=== PATIENT | male | born 1950 | race Caucasian/White ===

== ENCOUNTER 2020-03-24 07:46 | Outpatient (CLI) | payer MEDICARE, SELFPAY ==
--- NOTE | ~2020-03-24 | US_ITS ---
US right upper quadrant INDICATION: Chronic hepatitis PROCEDURE: Realtime right upper abdominal ultrasound. COMPARISON: No prior studies for comparison. FINDINGS: The pancreas is normal without focal mass or pancreatic ductal dilation. Liver echotexture is normal without focal mass or intrahepatic biliary dilatation. There is normal directional flow i n the portal vein. The gallbladder is normal without stones, gallbladder wall thickening or pericholecystic fluid. Comm on bile duct measures 6 mm. No sonographic Castellanos's sign. IMPRESSION: 1: Normal limited abdominal ultrasound. Reviewed, dictated and finalized at location B.
== END 2020-03-24 07:47 | disposition home or self-care (01) ==
PROVIDERS: PCP Internal Medicine; Visit Provider Internal Medicine
DX: K73.9 Chronic hepatitis, unspecified (principal)
CPT/HCPCS: 76705

== ENCOUNTER 2020-06-19 10:03 | Outpatient (CLI) | payer MEDICARE, SELFPAY ==
--- NOTE | ~2020-06-19 | XR_ITS ---
XR chest 2V DATE: 06/19/2020 10:31 INDICATION: Hypertension. Preoperative evaluation. TECHNIQUE: PA and lateral views COMPARISON: PA chest on 08/07/2017 FINDINGS: Bilateral hyperinflation. No pulmonary infiltrate or consolidation, pleural effusion or pul monary vascular congestion or pneumothorax. Normal heart size. No hilar or mediastinal enlargement. Degenerative spurring of the thoracic spine. IMPRESSION: No active cardiopulmonary disease Reviewed, dictated and finalized at location A.
--- NOTE | 2020-06-19 10:00 | ECG_ITS ---
Measurements Intervals [place] Rate: 94 P: 66 [place]: 164 QRS: 74 QRSD: 116 T: 49 QT: 339 QTc: 426 Interpretive Statements SINUS RHYTHM INTRAVENTRICULAR CONDUCTION DELAY BORDERLINE ECG Electronically Signed On 06-19-2020 11:37:04 CDT by David Richardson D.O.
== END 2020-06-19 10:04 | disposition home or self-care (01) ==
PROVIDERS: PCP Internal Medicine; Visit Provider Internal Medicine
DX: I10 Essential (primary) hypertension (principal); Z01.818 Encounter for other preprocedural examination
CPT/HCPCS: 71046; 93005

== ENCOUNTER 2020-07-09 13:31 | Outpatient (CLI) | payer MEDICARE, SELFPAY ==
[2020-07-09 15:05] LABS: Basophils Absolute Auto 0.1 K/mm3 (0.0-0.1); Basophils Percent Auto 0.8 % (0.2-1.2); Eosinophils Absolute Auto 0.3 K/mm3 (0-0.3); Eosinophils Percent Auto 4.1 % (0-4.4); Hematocrit 45.3 % (42.0-52.0); Hemoglobin 15.5 g/dL (14.0-18.0); Immature Granulocyte Absolute 0.02 K/mm3 (0.00-0.031); Immature Granulocyte Percent A 0.3 % (0-0.5); Lymphocytes Absolute Auto 1.32 K/mm3 (0.9-3.2); Mean Corpuscular HGB Conc 34.2 g/dl (32-36); Mean Corpuscular Hemoglobin 31.7 pg (26-34); Mean Corpuscular Volume 92.6 fl (80-100); Mean Platelet Volume 9.5 fl (7.4-10.4); Monocytes Absolute Auto 0.8 K/mm3 (0.1-0.6); Monocytes Percent Auto 10.5 % (2.6-8.5); Neutrophils Absolute Auto 5.2 K/mm3 (1.3-6.7); Neutrophils Percent Auto 67.3 % (45.5-73.1); Platelet Count Result 199 k/mm3 (150-375); Red Blood Count 4.89 M/mm3 (4.6-6.20); Red Cell Distribution Width 12.3 % (11.5-14.5); White Blood Count 7.8 K/mm3 (4.5-10.0)
[2020-07-09 15:13] LABS: Albumin Level 4.9 g/dL (3.5-5.1)
[2020-07-09 15:19] LABS: Hemoglobin A1C 5.1 % (<5.7); Urine Cotinine NEGATIVE
== END 2020-07-09 13:32 | disposition home or self-care (01) ==
PROVIDERS: PCP Internal Medicine; Visit Provider Orthopaedic Surgery
DX: M17.12 Unilateral primary osteoarthritis, left knee (principal); Z01.818 Encounter for other preprocedural examination
CPT/HCPCS: 80307; 82040; 83036; 85025; 87070; 87077; 87186

== ENCOUNTER 2020-10-16 09:27 | Outpatient (CLI) | payer MEDICARE, SELFPAY ==
[2020-10-16 11:24] LABS: Basophils Absolute Auto 0.1 K/mm3 (0.0-0.1); Basophils Percent Auto 0.8 % (0.2-1.2); Eosinophils Absolute Auto 0.5 K/mm3 (0-0.3); Eosinophils Percent Auto 4.4 % (0-4.4); Hematocrit 49.8 % (42.0-52.0); Hemoglobin 17.3 g/dL (14.0-18.0); Immature Granulocyte Absolute 0.05 K/mm3 (0.00-0.031); Immature Granulocyte Percent A 0.5 % (0-0.5); Lymphocytes Absolute Auto 1.93 K/mm3 (0.9-3.2); Lymphocytes Percent Auto 18.1 % (18.3-44.2); Mean Corpuscular HGB Conc 34.7 g/dl (32-36); Mean Corpuscular Hemoglobin 31.3 pg (26-34); Mean Corpuscular Volume 90.2 fl (80-100); Mean Platelet Volume 9.4 fl (7.4-10.4); Monocytes Absolute Auto 1.1 K/mm3 (0.1-0.6); Monocytes Percent Auto 10.5 % (2.6-8.5); Neutrophils Percent Auto 65.7 % (45.5-73.1); Platelet Count Result 250 k/mm3 (150-375); Red Blood Count 5.52 M/mm3 (4.6-6.20); Red Cell Distribution Width 11.9 % (11.5-14.5); White Blood Count 10.7 K/mm3 (4.5-10.0)
[2020-10-16 11:36] LABS: Albumin Level 4.7 g/dL (3.5-5.1)
[2020-10-16 11:39] LABS: Anion Gap 7 mmol/L (8-16); Blood Urea Nitrogen 21 mg/dL (9-20); Calcium 8.9 mg/dL (8.4-10.2); Carbon Dioxide 30 mmol/L (22-30); Chloride 104 mmol/L (98-107); Estimated Glomerular Filt Rate > 60; Glucose 96 mg/dL (75-110); Potassium 4.3 mmol/L (3.4-5.0); Sodium 141 mmol/L (137-145)
[2020-10-16 12:01] LABS: Urine Cotinine NEGATIVE
[2020-10-16 13:35] LABS: Hemoglobin A1C 5.2 % (<5.7)
== END 2020-10-16 09:28 | disposition home or self-care (01) ==
LOC: ANHSURGERY 09:33
PROVIDERS: PCP Internal Medicine; Visit Provider Orthopaedic Surgery
DX: M17.12 Unilateral primary osteoarthritis, left knee (principal); Z01.818 Encounter for other preprocedural examination
CPT/HCPCS: 36415; 80048; 80307; 82040; 83036; 85025; 86850; 86900; 86901; 87070; 87147; 87186

== ENCOUNTER → 2020-10-23 00:28 | Outpatient (CLI) | payer MEDICARE, SELFPAY ==
[2020-10-23 18:19] LABS: SARS-CoV-2 RNA PCR Negative
== END ==
PROVIDERS: PCP Internal Medicine; Visit Provider Orthopaedic Surgery
DX: Z01.812 Encounter for preprocedural laboratory examination (principal); Z20.822 Contact with and (suspected) exposure to COVID-19
CPT/HCPCS: C9803; U0003; U0005

== ENCOUNTER 2020-10-26 00:08 | Day surgery (SDC) | payer MEDICARE, SELFPAY ==
[2020-07-09 13:39] VITALS: BMI 32.6
[2020-07-09 14:43] VITALS: BP 151/87; PULSE 82; RESP 16; TEMP 36.9; O2SAT 100
[2020-10-16 10:13] VITALS: BP 152/85; PULSE 85; RESP 18; TEMP 37.1; O2SAT 96; BMI 33.1
--- NOTE | 2020-10-21 12:58 | PM.IMHP ---
H&P: HPI History of Present Illness Date/Time: 10/21/20 12:58 <LALO Padron - Last Filed: 10/21/20 13:05> Chief Complaint: Left knee DJD <LALO Padron - Last Filed: 10/21/20 13:05> Narrative: Ramy Roche is a 69 year old male patient of Dr. Rosario who presents today for a left total knee arthroplasty. He has been having pain in both of his knees for several years the right being worse than left. He had a cortisone injection on 10/19/2020 in the right knee by his primary care doctor, this does seem to help somewhat. He is taking meloxicam in the past as well. He has been having pain on a daily basis and reached a point where he feels he is ready proceed with total knee arthroplasty on the left at this point. 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 He has had pain on a daily basis without improvement from nonsurgical treatment. <LALO aPdron - Last Filed: 10/21/20 13:05> Review of Systems Review of Systems: All systems reviewed & are unremarkable except as noted in HPI and below <LALO Padron - Last Filed: 10/21/20 13:05> [facility], [facility] Past Medical History Medical History: Medical History (Updated 10/23/20 @ 08:12 by Brendan Robles DO) History of hepatitis C 2016 - treated Hypertension Rheumatoid arthritis <LALO Padron - Last Filed: 10/21/20 13:05> Social History Social History: Social History Smoking packs per day: 1 Smoking cigarettes per day: 20.0 Years smoked: 30 Smoking pack-years: 30.00 Smoking status: Former smoker Tobacco type: cigarettes Second hand tobacco smoke exposure: No Smoking end date: 03/11/94 Additional smoking assessment comments: DENIES ANY FORM OF TOBACCO/NICOTINE USE Alcohol intake: current Drinks per week: 32 Alcohol use details: 4 BEERS/DAY Substance use: current Substance use type: marijuana Other substance usage details: 2-3 TIMES/WEEK, SMOKE Living arrangements: with family Additional living arrangements comments: Spiritual care concerns: No <LALO Padron Last Filed: 10/21/20 13:05> Meds Home Medications and Allergies Home medications: Home Medications Medication Instructions Recorded Confirmed Type amlodipine 10 mg PO QAM 07/09/20 10/26/20 History meloxicam 15 mg PO DAILY 07/09/20 10/26/20 History lisinopril 40 mg PO QAM 10/16/20 10/26/20 History metoprolol succinate 50 mg PO QAM 10/16/20 10/26/20 History prednisone 10 mg PO DAILY 10/16/20 10/26/20 History <LALO Padron Last Filed: 10/21/20 13:05> Allergies/Adverse reactions: Allergies Allergy/AdvReac Type Severity Reaction Status Date / Time No Known Allergies Allergy Verified 10/26/20 06:45 <LALO Padron Last Filed: 10/21/20 13:05> Exam Narrative: Exam Narrative: 69-year-old male he is 5 ft 11 and 237 lb. He uses a cane. He has an obvious varus deformity in both of his knees. He has normal skin throughout both lower extremities. He has a prominent bunion in the left foot but without any skin changes over it. Normal sensation left foot. 2+ posterior tibial pulse range of motion left knee is from 2-130 degrees. He has [id number] effusion in the knee and mild medial joint line tenderness. Hip range of motion is full without discomfort on left with a negative Stinchfield maneuver. Normal quad strength. No edema in the left lower extremity. <LALO Padron Last Filed: 10/21/20 13:05> Resp: Auscultation: clear to auscultation bilaterally <LALO Padron Last Filed: 10/21/20 13:05> Cardio: Rate: regular rate <LALO Padron Last Filed: 10/21/20 13:05> Rhythm: regular rhythm <LALO Padron Last Filed: 10/21/20 13:05> Assessment and Plan Additional Plan 69-year-old male who has severe medial compartment and patellofemoral arthritis in th
[2020-10-26] VITALS (22 sets, daily range): BP systolic 115–153; BP diastolic 71–95; PULSE 103–125; RESP 12–20; TEMP 35.9–37.2; O2SAT 94–100
--- NOTE | ~2020-10-26 | XR_ITS ---
EXAMINATION: XR knee LT 2V DATE: 10/26/2020 14:59 INDICATION: Postoperative evaluation following left total knee arthroplasty. TECHNIQUE: Anteroposterior and lateral views of the left knee were obtained. COMPARISON: None. FINDINGS: Left total knee arthroplasty with patellar resurfacing appears well seated and in near anatomic align ment. No fractures identified. Expected postoperative subcutaneous and intra-articular gas. IMPRESSION: 1. Left total knee arthroplasty, negative for postoperative purposes. Reviewed, dictated and finalized at location A. EMIC AFFAIRS COORDINATOR
[2020-10-26] MEDS: ACETAMINOPHEN 500 MG TABLET 1000 MG PO ×2 (06:19→17:35)
[2020-10-26] MEDS: LACTATED RINGERS 1,000 ML 30 ML IV CONT ×2 (06:34→11:33)
--- NOTE | 2020-10-26 06:34 | WPDANESEPPF ---
Anes - Initial Pre Proc Eval Procedure: Operation Date: 10/26/20 07:30 Proposed Procedures p Left Total Knee Arthroplasty - Augustin Sutton MD Date/Time: 10/26/20 06:34 Surgeon: Augustin Sutton MD Pre Op Diagnosis: OA Left Knee Patient Data Age: 69 Gender: M Height: 1.83 m Weight: 110.9 kg Last Vital Signs Temp 37.1 C 10/16/20 10:13 Pulse 85 10/16/20 10:13 Resp 18 10/16/20 10:13 BP 152/85 H 10/16/20 10:13 Pulse Ox 96 10/16/20 10:13 Allergies Allergy/AdvReac Type Severity Reaction Status Date / Time No Known Allergies Allergy Verified 10/16/20 10:04 Home Medications Medication Instructions Recorded Confirmed Type amlodipine 10 mg PO QAM 07/09/20 10/26/20 History meloxicam 15 mg PO DAILY 07/09/20 10/26/20 History lisinopril 40 mg PO QAM 10/16/20 10/26/20 History metoprolol succinate 50 mg PO QAM 10/16/20 10/26/20 History prednisone 10 mg PO DAILY 10/16/20 10/16/20 History Patient hx anesthesia problems: none Family hx anesthesia problems: none PMFSH Past Medical History Medical History (Updated 10/23/20 @ 08:12 by Brendan Robles DO) History of hepatitis C 2016 - treated Hypertension Rheumatoid arthritis Social History Social History Smoking packs per day: 1 Smoking cigarettes per day: 20.0 Years smoked: 30 Smoking pack-years: 30.00 Smoking status: Former smoker Tobacco type: cigarettes Second hand tobacco smoke exposure: No Smoking end date: 03/11/94 Additional smoking assessment comments: DENIES ANY FORM OF TOBACCO/NICOTINE USE Alcohol intake: current Drinks per week: 32 Alcohol use details: 4 BEERS/DAY Substance use: current Substance use type: marijuana Other substance usage details: 2-3 TIMES/WEEK, SMOKE Living arrangements: with family Additional living arrangements comments: Spiritual care concerns: No Anes - Eval Final PreProcedure Day of Procedure 10/26/20 06:34 Patient weight: obese Heart: regular rate and rhythm Lungs: clear to auscultation and normal air movement Airway: Mallampati scale class II Neurological: alert and oriented Last oral intake: >/= 8 hours ASA classification: III Emergent: no Anesthetic plan: proceed Anesthesia type and monitoring: general ETT and standard monitoring Informed Consent: The patient's anesthetic plan and its attendant risks and benefits were discussed with the patient/family/POA. Questions were solicited and answers provided to the satisfaction of the patient/family/POA.
[2020-10-26] MEDS: TRANEXAMIC ACID 1,000MG/ISO100 1,000 MG/100 ML BAG 200 MG IVPB (07:00)
--- NOTE | 2020-10-26 07:20 | WPDHPUPDATE1 ---
History and Physical Update Update Date/Time: 10/26/20 07:20 History and Physical has been reviewed, including an updated exam of the patient. There are NO changes in the patient's condition. Risks, benefits, and alternatives have been discussed and questions answered. Patient agrees to proceed with procedure.
[2020-10-26] MEDS: ceFAZolin 2 GM/D5W 50 ML 2 GM/50 ML BAG IVPB (07:28)
[2020-10-26] MEDS: ceFAZolin SODIUM 1 GM VIAL 3 GM IRRIGATION (08:12)
[2020-10-26] MEDS: GENTAMICIN BONE CEMENT REFOBACIN 1 EACH TOPICAL (08:12)
[2020-10-26] MEDS: ceFAZolin SODIUM 1 GM VIAL IV PUSH (10:47)
--- NOTE | 2020-10-26 11:07 | PM.PROC ---
Procedure Note - Detailed Date of procedure: 10/26/20 Pre-op diagnosis: OA Left Knee Patient was brought to the operating room and general anesthesia was administered and the left leg prepped and draped usual fashion. He received 2 g of Ancef 1.75 g of vancomycin and 1 g of tranexamic acid preoperatively. The limb was exsanguinated tourniquet elevated to 200 sitting 5 mmHg. The 7 in longitudinal midline incision was used and a standard parapatellar arthrotomy was utilized. Infrapatellar and suprapatellar fat pads were excised and a quadriceps synovectomy carried out. He had severe patellofemoral arthritis with eburnation and grooving on the trochlea and the patella. The patella measured 24 mm in thickness and was cut to 15.5 mm. Bone quality good. Protector cap applied. A guide asif was inserted down the femoral canal after aspiration of canal contents using the 5 degree valgus cutting bushing 9 mm of bone removed from the distal femur. Because of moderate wear and some bone loss in the mid distal medial femoral condyle this removed equal amounts medially and laterally. Next the tibial plateau was cut and we removed a skim cut based off the low point the medial tibial plateau. This removed approximately 11 mm from lateral side. PCL was recessed meniscal remnants were excised. The knee was much tighter medially laterally in extension. Conservative removal of medial tibial osteophyte was performed this time. This allowed the spacer block to not quite be able to be inserted extension due to tightness medial relative the lateral but the asymmetry was acceptable a little bit looser laterally. We assessed the flexion gap at 90? which measured 8 mm medially and 12 mm laterally. Whitesides line was drawn on the femur. The tibial sizing guide referenced off the posterior femoral condyles was set at 5? external rotation which matched Whitesides line. The femur was cut to a size 72.5 vanguard. The fit was good medially laterally and anterior posterior. The tibia was sized to a size 79 and rotation set referenced off medial 1/3 of the tibial tubercle anterior tibial plateau and the 2nd metatarsal and this was punched and we trialed with the 11 . This was a little bit tighter laterally than medially and I carefully assessed the alignment of the tibial component which proved to be in about a degree of varus and I elected therefore to shave another mm so of bone off the lateral tibial plateau off the tibial cutting guide. We then very carefully achieved perfect flatness of the tibial plateau cut which was little time consuming because of the sclerotic bone medially. With this achieved we then reports the tibia and we had appropriate medial to lateral balance now at 90? and I thought there was a little bit of play. We trialed with the 12 insert and the stability seemed optimal now to anterior drawer stability and medial lateral balance at 90?. We had just a barely positive bounce. With the 11 the knee came out to full extension. Therefore we did cut an additional 1 mm bone plugs distal femur chamfers revisited. Prior to this we had removed posterior femoral osteophytes. I did not have to do a posterior femoral capsular release. He did have full extension preoperatively. We again trialed with a 12 insert at full extension with a 0.5 mm medial opening 2 mm lateral opening and appropriate stability in all positions of flexion. The patella was sized to a 34 x 8.5 and the lug holes drilled in the femur and the patella and there was central patellar tracking. We had put the tourniquet down at 90 minutes and were now ready to prepare for cementation the limb was exsanguinated tourniquet elevated again to 205 mmHg. A step drill was used to make multiple perforations in the tibial plateau and the dense bone of the distal femur. Bony surfaces thoroughly irrigated dried. Two batches of methylmethacrylate were mixed 1 containing gentamicin powder [employer]. The cement was
[2020-10-26] MEDS: fentaNYL CITRATE INJ (*CRX) 100 MCG/2 ML VIAL 25 MCG IV PUSH ×4 (11:56→12:09)
[2020-10-26] MEDS: METOPROLOL TARTRATE INJ 5 MG/5 ML VIAL IV PUSH ×3 (12:26→13:17)
--- NOTE | 2020-10-26 12:48 | SUR.PHASEI ---
1248- Dr. Reyes making rounds and ordered 5MG metoprolol IVP once, goal HR below 100, current HR elevated above 100 around 115-118. Total of 15MG metoprolol IVP to be given.
--- NOTE | 2020-10-26 13:20 | SUR.PHASEI ---
1320- Dr. Reyes at bedside and notified 15MG total of metoprolol IVP given. Per Dr. Reyes he is OK with patient going to floor with HR as is. HR with vitals prior to procedure was at 106.
--- NOTE | 2020-10-26 14:13 | ADMGEN ---
This patient, Ramy Roche, was admitted to 2 Medical Room 242-. Patient/family oriented to hospital policies and general routines including ID bracelet, bed and alarms, visiting hours, pain management, procedures, bathroom and other care routines, personal items, smoking policy, room service/diet, and visiting hours. Information on how to activate the Rapid Response Team has been discussed. Patient/Family are encouraged to report perceived risks to care and to ask questions if they do not understand what they are told or what they should do.
[2020-10-26] MEDS: SODIUM CHLORIDE 0.9% IV 1,000 ML 125 ML IV CONT (14:24)
[2020-10-26] MEDS: PROPARACAINE HCL 0.5% 15 ML OPHTH SOLN 1 DROP EACH EYE (14:25)
[2020-10-26] MEDS: oxyCODONE HCL (*CRX) 5 MG TAB IR PO ×3 (15:19→20:40)
--- NOTE | 2020-10-26 16:34 | ECG_ITS ---
Measurements Intervals [place] Rate: 117 P: 64 [place]: 181 QRS: 74 QRSD: 96 T: 40 QT: 317 QTc: 444 Interpretive Statements SINUS TACHYCARDIA ABNORMAL ECG Electronically Signed On 10-26-2020 19:02:18 LABEL PRESS OPERATOR by Davdi Richardson D.O.
[2020-10-26 17:27] LABS: Troponin I < 0.012 ng/mL (0.000-0.034)
[2020-10-26] MEDS: SENNA/DOCUSATE SODIUM TABLET 2 TAB PO (17:35)
[2020-10-26] MEDS: FAMOTIDINE 20 MG TABLET PO (20:40)
[2020-10-27] VITALS (7 sets, daily range): BP systolic 112–130; BP diastolic 69–76; PULSE 107–140; RESP 18–20; TEMP 36.6–37; O2SAT 96
[2020-10-27] MEDS: oxyCODONE HCL (*CRX) 5 MG TAB IR PO ×6 (00:04→13:00)
[2020-10-27 05:14] LABS: Basophils Absolute Auto 0.1 K/mm3 (0.0-0.1); Basophils Percent Auto 0.3 % (0.2-1.2); Eosinophils Percent Auto 0.1 % (0-4.4); Hematocrit 38.9 % (42.0-52.0); Hemoglobin 13.3 g/dL (14.0-18.0); Immature Granulocyte Absolute 0.08 K/mm3 (0.00-0.031); Immature Granulocyte Percent A 0.4 % (0-0.5); Lymphocytes Absolute Auto 0.98 K/mm3 (0.9-3.2); Lymphocytes Percent Auto 5.1 % (18.3-44.2); Mean Corpuscular HGB Conc 34.2 g/dl (32-36); Mean Corpuscular Hemoglobin 31.7 pg (26-34); Mean Corpuscular Volume 92.8 fl (80-100); Mean Platelet Volume 9.7 fl (7.4-10.4); Monocytes Absolute Auto 2.4 K/mm3 (0.1-0.6); Monocytes Percent Auto 12.7 % (2.6-8.5); Neutrophils Absolute Auto 15.5 K/mm3 (1.3-6.7); Neutrophils Percent Auto 81.4 % (45.5-73.1); Platelet Count Result 184 k/mm3 (150-375); Red Blood Count 4.19 M/mm3 (4.6-6.20); Red Cell Distribution Width 12.2 % (11.5-14.5); White Blood Count 19.1 K/mm3 (4.5-10.0)
[2020-10-27] MEDS: ACETAMINOPHEN 500 MG TABLET 1000 MG PO ×3 (05:25→11:46)
[2020-10-27 05:27] LABS: Anion Gap 8 mmol/L (8-16); Blood Urea Nitrogen 17 mg/dL (9-20); Calcium 8.3 mg/dL (8.4-10.2); Carbon Dioxide 27 mmol/L (22-30); Chloride 104 mmol/L (98-107); Estimated CRCL calculation 78 ml/min; Estimated Glomerular Filt Rate > 60; Glucose 119 mg/dL (75-110); Potassium 4.1 mmol/L (3.4-5.0); Sodium 139 mmol/L (137-145)
--- NOTE | 2020-10-27 06:31 | PM.PNORT ---
Progress Note: A&P Additional Plan POD 1 alert, pt has been tachy overnight BP -normal, pt states has a hx of tachycardia, cardiology has been consulted, no CP or SOB, pain is well controlled, pt was up walking yesterday in halls, mild swelling to knee today, dressing is dry, labs-noted, will plan to keep pt till this afternoon for both PT sessions and also to monitor HR and await cardiology eval. if he does well -plan to send home this afternoon Subjective Subjective Date/Time Seen: 10/27/20 06:31 Objective Data Vital Signs Vital Signs: Vital Signs - 24 hr 10/26/20 11:33 10/26/20 11:45 10/26/20 12:00 Temperature 36.2 C L Pulse Rate 103 H 116 H 119 H Respiratory Rate 12 18 16 Blood Pressure 115/74 153/93 H 144/95 H Pulse Oximetry 100 100 99 10/26/20 12:15 10/26/20 12:26 10/26/20 12:30 Temperature Pulse Rate 122 H 125 H 113 H Respiratory Rate 18 18 Blood Pressure 153/90 H 140/94 H Pulse Oximetry 95 97 10/26/20 12:40 10/26/20 12:53 10/26/20 12:55 Temperature Pulse Rate 116 H 119 H 111 H Respiratory Rate 18 16 Blood Pressure 146/82 H 147/86 H Pulse Oximetry 95 94 10/26/20 13:10 10/26/20 13:17 10/26/20 13:25 Temperature Pulse Rate 114 H 115 H 112 H Respiratory Rate 16 18 Blood Pressure 136/85 144/87 H Pulse Oximetry 96 98 10/26/20 13:45 10/26/20 14:00 10/26/20 14:07 Temperature 36.7 C 35.9 C L Pulse Rate 116 H 120 H 121 H Respiratory Rate 18 18 Blood Pressure 142/86 H 142/71 H Pulse Oximetry 96 95 10/26/20 14:30 10/26/20 15:30 10/26/20 16:00 Temperature 36.2 C L 36.3 C L Pulse Rate 122 H 124 H 120 H Respiratory Rate 18 16 Blood Pressure 122/84 133/81 Pulse Oximetry 98 96 10/26/20 19:37 10/26/20 20:00 10/26/20 23:37 Temperature 37.2 C 36.8 C Pulse Rate 122 H 123 H 122 H Respiratory Rate 20 16 20 Blood Pressure 137/75 127/74 Pulse Oximetry 96 96 96 10/27/20 00:00 10/27/20 00:20 10/27/20 03:37 Temperature 36.6 C Pulse Rate 140 H 114 H 116 H Respiratory Rate 20 Blood Pressure 130/76 Pulse Oximetry 96 10/27/20 04:00 Temperature Pulse Rate 107 H Respiratory Rate Blood Pressure Pulse Oximetry Intake/Output Intake/Output: Intake & Output 10/24/20 10/25/20 10/26/20 10/27/20 23:59 23:59 23:59 23:59 Intake Total 2318 390 Output Total 600 675 Balance 5468 -982 Meds/Results Medications: Active Medications Generic Name Dose Route Start Last Admin Trade Name Freq PRN Reason Stop Dose Admin Acetaminophen 1,000 mg 10/26/20 18:00 10/27/20 05:25 Acetaminophen 500 Mg Tablet PO 1,000 mg Q6H YARY Administration Amlodipine Besylate 10 mg 10/27/20 09:00 Amlodipine Besylate 5 Mg Tablet PO QAM YARY Apixaban 2.5 mg 10/27/20 09:00 Apixaban 2.5 Mg Tablet PO 11/07/20 21:01 Q12HR YARY Artificial Tears 1 drop 10/26/20 14:04 10/26/20 17:39 Artificial Tears Op Soln 15 Ml Bottle EACH EYE 1 drop Q2H PRN Administration Dry Eye(s) Celecoxib 200 mg 10/27/20 08:00 Celecoxib 200 Mg Capsule PO DAILY@0800 YARY Cephalexin HCl 500 mg 10/27/20 12:00 Cephalexin 500 Mg Capsule PO Q6HR YARY Diphenhydramine HCl 25 mg 10/26/20 13:52 Diphenhydramine Hcl Inj 50 Mg/Ml Vial IV PUSH Q6H PRN Itching Famotidine 20 mg 10/26/20 21:00 10/26/20 20:40 Famotidine 20 Mg Tablet PO 20 mg Q12HR YARY Administration Vancomycin HCl 1,000 mg in 250 mls @ 250 mls/hr 10/26/20 19:00 10/27/20 06:08 Vancomycin 1,000 Mg/D5w 250 Ml IVPB 10/27/20 07:59 250 mls/hr Q12H YARY Administration Cefazolin Sodium 1 gm in 50 mls @ 100 mls/hr 10/26/20 15:00 10/27/20 06:05 Ancef 1 Gm/D5w 50 Ml Pm IVPB 10/27/20 07:29 Infused Q8H YARY Infusion Metoprolol Succinate 50 mg 10/27/20 09:00 Metoprolol Succinate Ext Rel 50 Mg Tabcr PO QAM YARY Naloxone HCl 0.1 mg 10/26/20 13:52 Naloxone Hcl 0.4 Mg/Ml Vial IV PUSH Q2M PRN Opiate Reversal Ondansetro
--- NOTE | 2020-10-27 06:40 | PM.DS ---
DS: Admitting Diagnosis Admitting Diagnosis Admitting Diagnosis: left knee DJD DS: Summary Hospital Course Hospital Course: 69-year-old male who underwent left total knee arthroplasty on 10/27/2020. Underwent procedure without any complications postoperatively he has been tachycardic with heart rate in the 110 to low 120s. His blood pressure has been normal he has been having no chest pain or shortness of breath. Patient did state that he does have a history of tachycardia in the past. Patient did take his beta-simran the morning of surgery. He was up walking in the halls the day of surgery comfortable. His pain is well controlled with scheduled Tylenol as well as oxycodone 5 mg. He is also on Celebrex 200 mg once a day. Because of his tachycardia cardiology has been consulted will await the evaluation. Otherwise patient is doing well. He has some mild swelling in the knee itself but his dressing is dry. We will plan outpatient be discharged to home on 10/28 if there are no medical issues. Patient was advised to keep the leg elevated at home prevent swelling into his exercise on a regular basis. His outpatient therapy starting this Monday in [place]. He is also going home on 1 week of Keflex due to his positive nasal swab. He will also be on MiraLax and Senokot for constipation. There is any medical issues once he is evaluated by Cardiology patient may need to be kept for another night additional evaluation. Otherwise we will plan to discharge him home this afternoon. Patient was advised any questions or concerns once he goes home she should call the office otherwise will see him at his appointment date DS: Data Data Completed and Pending Labs on day of discharge: Labs from last 24 hours 10/27/20 10/27/20 10/26/20 04:58 04:58 16:57 WBC 19.1 H RBC 4.19 L Hgb 13.3 L D Hct 38.9 L MCV 92.8 MCH 31.7 MCHC 34.2 RDW 12.2 Plt Count 184 MPV 9.7 Immature Gran % (Auto) 0.4 Neut % (Auto) 81.4 H Lymph % (Auto) 5.1 L [place] % (Auto) 12.7 H Eos % (Auto) 0.1 Baso % (Auto) 0.3 Lymph # (Auto) 0.98 [place] # (Auto) 2.4 H Eos # (Auto) 0.0 Baso # (Auto) 0.1 Abs Immat Gran (auto) 0.08 H Absolute Neuts (auto) 15.5 H Absolute Nucleated RBC 0.0 Nucleated RBC % 0.0 Sodium 139 Potassium 4.1 Chloride 104 Carbon Dioxide 27 Anion Gap 8 BUN 17 Creatinine 1.00 Estim Creat Clear Calc 78 Estimated GFR > 60 Glucose 119 H Calcium 8.3 L Troponin I < 0.012 Discharge Plan Discharge Patient Disposition: Home, Self-Care Discharge Instructions: AUGUSTIN SUTTON M.D [facility], [facility] [address] [place] [address] POST-OPERATIVE DISCHARGE INSTRUCTIONS TOTAL KNEE ARTHROPLASTY 1. When resting, lie on back with leg elevated above hear to minimize swelling. Significant swelling could indicate a blood clot and if this occurs call the office (or go to the ER) to have a venous ultrasound. 2. Do exercise 5 times a day. 3. Do not sit with leg down except for meals. 4. Wound Care: Nursing will give additional dressings at discharge. Patient to change dressing at home 1 week from surgery, then maintain until seen in office. 5. May shower with dressing in place. 6. Follow weight bearing status instructions. Patient Instructions: Apixaban (By mouth) Stand Alone Forms: General Discharge Instructions Follow-up/Referrals: Augustin Sutton MD [Physician] - Keep Reg. Scheduled Appt. Discharge Medications: New acetaminophen 500 mg Tablet 1,000 mg PO Q6H Qty: 90 RF: 0 Eliquis 2.5 mg Tablet 2.5 mg PO Q12HR Qty: 27 RF: 0 celecoxib [Celebrex] 200 mg Capsule 200 mg PO DAILY@0800 Qty: 14 RF: 0 cephalexin 500 mg Capsule 500 mg PO Q6HR Qty: 28 RF: 0 sennosides-docusate sodium [Senokot-S] 8.6-50 mg Tablet 2 tab PO BID Qty: 60 RF: 0 oxycodone 5
--- NOTE | 2020-10-27 06:46 | PC.NURSE ---
Pt. refused to get up in the chair this AM and is concerned about swelling in knee. Advised Pt to speak to with these concerns.
[2020-10-27] MEDS: polyethylene glycoL 3350 17 GM POWD.PACK PO (08:06)
[2020-10-27] MEDS: FAMOTIDINE 20 MG TABLET PO (08:06)
[2020-10-27] MEDS: SENNA/DOCUSATE SODIUM TABLET 2 TAB PO (08:07)
[2020-10-27] MEDS: amLODIPine BESYLATE 5 MG TABLET 10 MG PO (08:07)
[2020-10-27] MEDS: CELECOXIB 200 MG CAPSULE PO (08:07)
[2020-10-27] MEDS: APIXABAN 2.5 MG TABLET PO (08:08)
[2020-10-27] MEDS: METOPROLOL SUCCINATE EXT REL 50 MG TABCR PO (08:08)
--- NOTE | 2020-10-27 08:35 | WPDANESPN ---
Anes - Prog Note Post-Op Date/Time: 10/27/20 08:35 Cardiovascular status: normal Respiratory status: normal Airway patency: baseline Mental status: baseline Post-Op hydration status: normal Vital Signs: Last Vital Signs Temp 36.6 C 10/27/20 03:37 Pulse 107 H 10/27/20 04:00 Resp 20 10/27/20 03:37 BP 130/76 10/27/20 03:37 Pulse Ox 96 10/27/20 03:37 Pain Score (VAS): 4 I/O: Intake & Output 10/26/20 10/27/20 10/27/20 23:59 07:59 15:59 Intake Total 1218 390 Output Total 300 675 Balance 918 -285 Laboratory Tests 10/27/20 04:58 10/27/20 04:58 10/26/20 10/27/20 10/27/20 16:57 04:58 04:58 WBC 19.1 H RBC 4.19 L Hgb 13.3 L D Hct 38.9 L MCV 92.8 MCH 31.7 MCHC 34.2 RDW 12.2 Plt Count 184 MPV 9.7 Immature Gran % (Auto) 0.4 Neut % (Auto) 81.4 H Lymph % (Auto) 5.1 L [place] % (Auto) 12.7 H Eos % (Auto) 0.1 Baso % (Auto) 0.3 Lymph # (Auto) 0.98 [place] # (Auto) 2.4 H Eos # (Auto) 0.0 Baso # (Auto) 0.1 Abs Immat Gran (auto) 0.08 H Absolute Neuts (auto) 15.5 H Absolute Nucleated RBC 0.0 Nucleated RBC % 0.0 Sodium 139 Potassium 4.1 Chloride 104 Carbon Dioxide 27 Anion Gap 8 BUN 17 Creatinine 1.00 Estim Creat Clear Calc 78 Estimated GFR > 60 Glucose 119 H Calcium 8.3 L Troponin I < 0.012 Post-procedural complaints: none Patient Feedback: Patient satisfied with anesthetic care.
--- NOTE | 2020-10-27 10:24 | PM.CNCAR ---
Assessment and Plan Assessment and plan (1) Sinus tachycardia: Code(s): R00.0 - Tachycardia, unspecified Status: Acute Assessment and Plan: 69-year-old male with history of hypertension, arthritis status post left knee arthroplasty. Patient is found to be in a sinus tachycardia with heart rates in 110s to 120s. Patient reports that his baseline heart rate is usually in 90s to early 100s. His EKG shows sinus tachycardia without any significant ST-T abnormalities. Patient's sinus tachycardia may be appropriate in current clinical situation with postoperative state and ongoing pain. However, given his history of elevated heart rates (which patient reported), it is possible that patient has inappropriate sinus tachycardia, or secondary to some underlying disorder. -check thyroid panel -increase metoprolol succinate dose to 100 mg p.o. daily. Hold amlodipine and lisinopril for now to avoid drop in the blood pressure. Patient's blood pressure medications can be adjusted as needed as an outpatient. -outpatient Cardiology follow-up information was provided to the patient. History of Present Illness History of Present Illness Consult date/time: 10/27/20 10:24 Date of consult-10/27/2020 Reason for consult: Tachycardia Requesting physician:MD Herman Chief complaint: Knee pain HPI: 69-year-old male with hypertension, osteoarthritis. Patient is status post left total knee arthroplasty on 10/26/2020. Postoperatively, patient was found to be in sinus tachycardia with heart rates in 110s to 120s. Cardiology was therefore consulted. Patient denies any prior cardiac history including [place], angina, heart failure or any known arrhythmias. However, he does give history of elevated heart rates at baseline. He states that his heart rate is usually in 90s to 100s. He denies any symptoms of chest pain, shortness of breath, palpitations or dizziness. EKG on my personal evaluation shows sinus tachycardia, heart rate 117 beats per minute, no significant ST-T abnormalities. Reason For Visit: OA Left Knee Review of Systems Review of Systems: Narrative: General: Negative for fever, chills, fatigue Psychological: Negative for anxiety, depression Ophthalmic: negative for loss of vision ENT: Negative for epistaxis, headaches Allergy and immunology: Negative for hives, nasal congestion Hematologic and lymphatic: Negative for overt bleeding problems Endocrine: Negative for hot flashes, palpitations Respiratory: Negative for cough, hemoptysis Cardiovascular: Negative for chest pain, shortness of breath, leg swelling, palpitations, dizziness, syncope Gastrointestinal: Negative for abdominal pain, nausea, vomiting, hematochezia Musculoskeletal: Knee pain Neurological: Negative for weakness Dermatological: Negative for rash, skin discoloration PMF Past Medical History Medical History History of hepatitis C 2016 - treated Hypertension Rheumatoid arthritis Social History Social History Smoking packs per day: 1 Smoking cigarettes per day: 20.0 Years smoked: 32 Smoking pack-years: 32.00 Smoking status: Former smoker Tobacco type: cigarettes Second hand tobacco smoke exposure: No Smoking end date: 03/11/94 Additional smoking assessment comments: DENIES ANY FORM OF TOBACCO/NICOTINE USE Alcohol intake: former Drinks per week: 32 Alcohol use details: 4 BEERS/DAY Substance use: current Substance use type: does not use Other substance usage details: 4-8 beers every other day, hasn't drank in 2 weeks Living arrangements: with family Additional living arrangements comments: Spiritual care concerns: No Meds Home Medications and Allergies Home Medications Medication Instructions Recorded Confirmed Type amlodipine 10 mg PO QAM 07/09/20 10/26/20 History lisinopril 40 mg PO Q
--- NOTE | 2020-10-27 11:39 | PM.IMCN ---
Assessment and Plan Assessment and plan (1) History of total left knee replacement (TKR): Code(s): Z96.652 - Presence of left artificial knee joint Status: Inactive Assessment and Plan: S/p left total knee arthroplasty by Dr. Sutton on 10/26/2020. He tolerated the procedure well and his pain is well controlled. He will participate in PT/OT today and will follow-up with outpatient PT. He will follow-up with orthopedics on 11/05/2020. Pain control and DVT prophylaxis ordered per orthopedic surgery. (2) Sinus tachycardia: Code(s): R00.0 - Tachycardia, unspecified Status: Acute Assessment and Plan: Telemetry reviewed which demonstrated sinus tachycardia with heart rate up to 120 days. He reports history of sinus tachycardia with no additional cardiac history. He remains asymptomatic. May be related to pain, however given ongoing tachycardia, Cardiology was consulted. TSH is pending. Metoprolol has been increased. He will need to follow-up with cardiology as an outpatient. (3) Hypertension: Code(s): I10 - Essential (primary) hypertension Status: Inactive Assessment and Plan: Blood pressures reviewed. Initially elevated, however have improved significantly and are very well controlled today. Given increase in metoprolol, his amlodipine and lisinopril was held per Cardiology recommendations. He will need outpatient follow-up for further adjustment of his antihypertensive regimen. I have encouraged him to monitor his blood pressures at home and record for review by PCP. (4) Leukocytosis: Code(s): D72.829 - Elevated white blood cell count, unspecified Status: Acute Assessment and Plan: White count was elevated at 19.1 today. This is most likely reactive secondary to surgery. He has no signs or symptoms to suggest underlying infection. He is afebrile. He was started on PO Keflex per orthopedic surgery, however I believe this is for postoperative prophylaxis and again do not suspect any infectious process. Recommend outpatient CBC in 1 week to ensure resolution. HPI Data of Consult Consult date: 10/27/20 Requesting Physician: Augustin Sutton MD Primary Care Provider: Jocelyne Rosario MD Consult Narrative Reason for consult: Medical management Narrative: Date of admission: 10/26/2020 Date of service: 10/27/2020 Ramy Roche is a 69 year old male with history of hepatitis-C, hypertension, and rheumatoid arthritis who underwent left total knee arthroplasty on 10/26/[address] Sutton. He tolerated the procedure well. His pain has been well controlled. He will be participating in therapy today and then will be discharging home this afternoon. He will continue with outpatient physical therapy in [place] and will follow-up with Dr. Sutton on 11/05/2020. He was noted to have sinus tachycardia on cardiac monitoring but remained asymptomatic. He reports that he typically has an elevated resting heart rate but has never had any symptoms related to this. He denies any cardiac history including atrial fibrillation. He denies chest pain or palpitations. He has no additional concerns. Review of Systems Review of Systems: Narrative: All systems reviewed with pertinent positives and negatives as per HPI. Additionally patient denies shortness of breath, cough, nausea, vomiting, dizziness, lightheadedness, weakness, abdominal pain, dysuria, constipation. [facility] Past Medical History Medical History (Updated 10/27/20 @ 11:51 by Mia Braun PA-C) History of hepatitis C 2016 - treated Hypertension Rheumatoid arthritis Surgical History Surgical History (Updated 10/27/20 @ 11:44 by Mia Braun PA-C) History of total left knee replacement (TKR) Family History Family History (Updated 10/27/20 @ 11:45 by Mia Braun PA-C) Mother Diabetes mellitus Social History Social History (Updated 10/27/20 @ 11:47 by Mia
[2020-10-27] MEDS: CEPHALEXIN 500 MG CAPSULE PO (11:46)
[2020-10-27 14:25] LABS: Total Triiodothyronine (T3) 0.78 NG/ML (0.97-1.69)
== END 2020-10-27 14:05 | disposition home or self-care (01) ==
LOC: ANHSURGERY 05:43 → ANH2MED 10-27 08:12
PROVIDERS: Internal Medicine Cardiovascular Disease; Physician Assistant Surgical; PCP Internal Medicine; Visit Provider Orthopaedic Surgery
PROC: (CPT 27447; principal; 2020-10-26 07:30)
DX: M17.12 Unilateral primary osteoarthritis, left knee (principal); R00.0 Tachycardia, unspecified; I10 Essential (primary) hypertension; D72.829 Elevated white blood cell count, unspecified; M06.9 Rheumatoid arthritis, unspecified; Z86.19 Personal history of other infectious and parasitic diseases; Z87.891 Personal history of nicotine dependence
CPT/HCPCS: 27447; 36415; 73560; 80048; 80307; 82040; 83036; 84439; 84443; 84480; 84484; 85025; 86850; 86900; 86901; 87070; 87147; 87186; 93005; 97110; 97116; 97161; 97165; 97530; A9270; C1713; C1776; C9803; J0171; J0330; J0690; J1100; J1170; J2270; J2370; J2405; J2704; J2795; J3010; J3370; J7030; J7120; U0003; U0005

== ENCOUNTER 2020-10-30 13:00 | Outpatient (RCR) | payer MEDICARE, SELFPAY ==
--- NOTE | 2020-10-30 13:57 | PTOPEVAL ---
Thank you for referring Ramy Roche to [facility].? The patient is scheduled to be seen for therapy? ____x/week for ___ weeks. Please review, sign, date and return this plan of care TORI. I agree with and certify that the following plan of care is medically necessary. Referring Physician Date Admitting Provider: Attending Provider: Augustin Sutton MD Referring Provider: *PT Outpatient Evaluation Start: 10/30/20 13:11 Freq: Status: Active Protocol: Document 10/30/20 13:10 [facility] (Rec: 10/30/20 13:56 [facility] [id number]) Therapy Assessment Status Assessment Status Assessment Status Evaluation Outpatient Past Medical History Neurological History Hx Neurological Disorders No Significant History Cardiovascular History Hx Hypertension Yes Hx Other Cardiac Disorders Yes: DENIES ANY CARDIAC SYMPTOMS Respiratory History Hx Respiratory Disorders No Significant History Gastrointestinal History Hx Hepatitis Yes: HEP C ~2016 TREATED X 3 MONTHS Genitourinary History Hx Genitourinary Disorders No Significant History Musculoskeletal History Hx Arthritis Yes Hx Crutches or Walker Use Yes: USING CANE R/T LT KNEE OA Query Text:If Yes, Enter Crutches, Walker, or Both in the Comment Hx Orthopedic Surgery Yes: RT KNEE SCOPE Hx Rheumatoid Arthritis Yes Hx Other Musculoskeletal Disorders Yes: OA LT KNEE, STATES MAY HAVE RHEUMATOID ARTHRITIS? Hematological History Hx Hematological Disorders No Significant History Endocrine History Hx Endocrine Disorders No Significant History HEENT History Hx Sinus Problems Yes Hx Other HEENT Disorders Yes: GLASSES BILAT TINNITUS Integumentary History Hx Eczema Yes: HX OF RT LOWER LEG Reproductive History Hx Reproductive Disorders No Significant History Psychosocial History Hx Psychiatric Disorders No Significant History Pain History History of Any Previous or Ongoing No Significant History Instance of Pain Anesthesia History Hx Anesthesia Reactions No Significant History Evaluation Information Problem Diagnosis s/p L TKA Onset 10/26/20 Additional Evaluation Detail LEFS = 82% functionally declined Subjective Information patient arrives to therapy Query Text:As Reported By Patient/ this date. he is ambulating Family with a walker as he is 4 days post R TKA. he reports he has been home since the . he reports he has seen the post op exercise protocol from his
--- NOTE | 2020-11-05 14:06 | PCPTNOTE ---
11/05/20 Mr. Roche has completed 3 skilled PT visits as of this date. His AROM L knee flexion has improved to 105 degrees, and his AROM L knee extension has achieved 3 degrees from 0. He has transitioned to a cane realtime court reporter for ambulation. He appears to be progressing well, and is making large strides towards all goals. Thus far, his therapy has included sitting, supine, prone, standing exercises for improved ROM, strength, and gait mechanics. He has been educated on the post op TKA protocol provided by your office. Thank you for allowing our facility to be involved in the care of Mr. Roche. If you have any further questions or concerns, please feel free to contact our office. Sincerely, Sanchez Garland, DPT [phone]
--- NOTE | 2020-11-19 16:47 | PCPTNOTE ---
11/19/20 Mr. Roche has completed 7 skilled PT visits as of this date. His L AROM is 0-112 and PROM is 0-122. He has transitioned to utilizing the cane while out in the community. He is progressing well and continues to stride toward his goals. Thus far, his therapy has included supine, prone, sitting, and standing exercises for improved ROM, strength, and gait mechanics. Balance activities were initiated at the most recent visit. He continues to perform all exercises on the post op TKA protocol provided by your office. Thank you for allowing our facility to be involved in the care of Mr. Roche. If you have any further questions or concerns, do not hesitate to call the office. Sincerely, Dolores Arredondo, DPT [phone]
== END 2020-12-03 15:35 | disposition home or self-care (01) ==
LOC: CHSPT 13:00
PROVIDERS: PCP Internal Medicine; Visit Provider Orthopaedic Surgery
DX: Z96.652 Presence of left artificial knee joint (principal)
CPT/HCPCS: 97016; 97110; 97161; 97530

== ENCOUNTER 2021-05-19 12:07 | Outpatient (CLI) | payer MEDICARE, SELFPAY ==
[2021-05-19 12:36] LABS: Hematocrit 46.6 % (37.0-46.0); Hemoglobin 15.9 g/dL (12.4-15.3)
== END 2021-05-19 12:08 | disposition home or self-care (01) ==
LOC: CHSLAB 12:10
PROVIDERS: PCP Internal Medicine; Visit Provider Internal Medicine
DX: E83.110 Hereditary hemochromatosis (principal)
CPT/HCPCS: 36415; 85014; 85018

== ENCOUNTER 2021-06-01 13:50 | Outpatient (CLI) | payer MEDICARE, SELFPAY ==
[2021-06-01 14:04] LABS: Basophils Absolute Auto 0.04 K/mm3 (0.00-0.10); Basophils Percent Auto 0.6 % (0.0-1.0); Eosinophils Absolute Auto 0.41 K/mm3 (0.02-0.50); Hemoglobin 15.8 g/dL (12.4-15.3); Immature Granulocyte Absolute 0.02 K/mm3 (0.00-0.00); Immature Granulocyte Percent A 0.3 % (0.0-0.0); Lymphocytes Absolute Auto 1.18 K/mm3 (1.10-4.50); Lymphocytes Percent Auto 17.4 % (18.0-42.0); Mean Corpuscular HGB Conc 35.1 g/dL (32.0-36.0); Mean Corpuscular Hemoglobin 32.2 pg (27.0-31.0); Mean Corpuscular Volume 91.6 fL (78.0-102.0); Mean Platelet Volume 9.8 fl (8.7-11.0); Monocytes Absolute Auto 0.91 K/mm3 (0.10-0.90); Monocytes Percent Auto 13.4 % (2.0-11.0); Neutrophils Absolute Auto 4.2 K/mm3 (1.7-7.2); Neutrophils Percent Auto 62.3 % (50.0-70.0); Platelet Count Result 190 K/mm3 (150-420); Red Blood Count 4.91 M/mm3 (4.70-6.10); White Blood Count 6.8 K/mm3 (4.8-10.8)
--- NOTE | 2021-06-01 14:20 | PC.NURSE ---
Pt to Outpatient infusion Center with order for Phlebotomy x's one unit. H&H 15.8/45.0. Pt has no complaints. Procedure explained. Pt has no questions.
[2021-06-01 14:25] VITALS: BP 151/90; PULSE 57; RESP 20; TEMP 36.7; O2SAT 97
--- NOTE | 2021-06-01 15:10 | PC.NURSE ---
#18g IV cath started in L AC on first attempt, 1/3 of phlebotomy blood bag filled before IV stopped draining. New #18g started in R AC and drained small amount of blood into phlebotomy bag before stopped draining. New #18G IV started in L Hand and small amount of blood drained into phlebtomy bag before IV stopped draining. One half unit of blood total drained. All IV sites covered with 2x2. Sites without redness, edema or drainage. Pt tolerated well. Denies dizziness, nausea. Has no other symptoms. Ate cookies and drank a soda. Pt discharged to home ambulatory per self.
[2021-06-01 16:13] LABS: Ferritin 434 ng/mL (26-388); Iron 127 ug/dL (65-175); Percent Iron Saturation 44 % (12-57)
== END 2021-06-01 13:51 | disposition home or self-care (01) ==
PROVIDERS: PCP Internal Medicine; Visit Provider Internal Medicine
DX: E83.110 Hereditary hemochromatosis (principal)
CPT/HCPCS: 36415; 82728; 83540; 83550; 85025; 99195

== ENCOUNTER 2021-11-16 13:16 | Outpatient (CLI) | payer MEDICARE, SELFPAY ==
[2021-11-16 13:32] LABS: Hematocrit 45.4 % (37.0-46.0); Hemoglobin 15.6 g/dL (12.4-15.3)
[2021-11-16 13:45] VITALS: BP 175/93; PULSE 92; RESP 14; TEMP 36.6; O2SAT 97
[2021-11-16 14:22] VITALS: BP 175/85; PULSE 88; RESP 20; TEMP 36.4; O2SAT 98
--- NOTE | 2021-11-16 14:31 | PC.NURSE ---
Patient here for therapeutic Phlebotomy r/t dx Hemochromatosis. H/H 15.6/45.4. 1 Unit withdrawn from patient. Tolerated well. see phlebotomy sheets. Safe exit of hospital.
== END 2021-11-16 13:17 | disposition home or self-care (01) ==
LOC: CHSTREATRM 13:20
PROVIDERS: PCP Internal Medicine; Visit Provider Internal Medicine
DX: E83.110 Hereditary hemochromatosis (principal)
CPT/HCPCS: 36415; 85014; 85018; 99195

== ENCOUNTER 2022-11-17 11:05 | Outpatient (CLI) | payer MEDICARE, SELFPAY ==
--- NOTE | ~2022-11-17 | XR_ITS ---
XR chest 2V DATE: 11/17/2022 11:21 INDICATION: Dyspnea, shortness of breath for one year. History of rib fracture 2 years ago. TECHNIQUE: 2 views COMPARISON: 06/19/2020 PA and lateral chest FINDINGS: Normal heart size. No hilar or mediastinal enlargement. No pulmonary infiltrate or consolid ation, pleural effusion or pulmonary vascular congestion or pneumothorax. There is degenerative spurring of the thoracic and lumbar spine. IMPRESSION: No active cardiopulmonary disease Reviewed, dictated and finalized at location L. CH PACKER
== END 2022-11-17 11:06 | disposition home or self-care (01) ==
LOC: CHSIMG 11:05
PROVIDERS: PCP Internal Medicine; Visit Provider Internal Medicine
DX: R06.00 Dyspnea, unspecified (principal)
CPT/HCPCS: 71046

== ENCOUNTER 2023-07-03 13:44 | Outpatient (CLI) | payer MEDICARE, SELFPAY ==
--- NOTE | 2023-07-03 13:51 | ECHO_ITS ---
Patient Info Name: Ramy Roche Age: 72 years : 1950 Gender: Male Ht: 72 in Wt: 250 lbs BSA: 2.44 m2 HR: 97 bpm BP: 150 / 85 mmHg Heart Rhythm: Sinus Arrhythmia Technical Quality: Good Exam Date: 07/03/2023 1:52 PM Exam Location: [facility] Patient Status: Outpatient Admit Date: 07/03/2023 Staff Ordering Physician: Jocelyne Rosario MD [employer] Paraprofessional: Prerna Inman RDCS Attending Provider: Jocelyne Rosario MD Referring Physician: Abraham JOHNSON; Exam Type: CA echo doppler color flow Study Info Indications - dyspnea, hypertention Complete two-dimensional, color flow and Doppler transthoracic echocardiogram is performed. Summary 1. Complete two-dimensional, color flow and Doppler transthoracic echocardiogram is performed. 2. Left ventricular chamber dimension is normal. 3. Left ventricular systolic function is normal, estimated at 60-65%. 4. The left ventricular diastolic function is grade I diastolic dysfunction. 5. E/e' 8 is minimally elevated. 6. Left atrial chamber dimension is mildly enlarged. 7. There is mild mitral valve regurgitation. 8. There is trace tricuspid valve regurgitation. 9. No pulmonary hypertension, estimated pulmonary arterial systolic pressure is 19 mmHg. 10. The aortic root size at the sinus of Valsalva is mildly dilated at 4.3 cm at sinus of valsalva. Left Ventricle E/e' 8 is minimally elevated. Left ventricular chamber dimension is normal. Left ventricular systolic function is normal, estimated at 60-65%. The left ventricular diastolic function is grade I diastolic dysfunction. Right Ventricle Right ventricular chamber dimension is normal. Right ventricular systolic function is normal. Left Atria Left atrial chamber dimension is mildly enlarged. Right Atria Right atrial chamber dimension is normal. Aortic Valve The aortic valve is trileaflet. There is no aortic valve stenosis. There is no aortic valve regurgitation. Pulmonic Valve There is no pulmonic regurgitation. Mitral Valve There is no mitral valve stenosis. There is mild mitral valve regurgitation. Tricuspid Valve There is trace tricuspid valve regurgitation. No pulmonary hypertension, estimated pulmonary arterial systolic pressure is 19 mmHg. Pericardium/Pleural There is no pericardial effusion. Inferior Vena Cava Normal inferior vena cava with >50% collapse upon inspiration consistent with normal right atrial pressure, 5 mmHg. Aorta The aortic root size at the sinus of Valsalva is mildly dilated at 4.3 cm at sinus of valsalva. Left Ventricular Outflow Tract Name Value Normal LVOT 2D LVOT Diameter 2.2 cm LVOT Doppler LVOT Peak Velocity 107 cm/s LVOT Peak Gradient 3 mmHg LVOT Mean Gradient 2 mmHg LVOT VTI 26 cm LVOT VTI/AV VTI Ratio 0.9 LVOT Stroke Volume 103 ml Pulmonic Valve Name Value Normal RVOT Doppler
== END 2023-07-03 13:45 | disposition home or self-care (01) ==
LOC: CHSIMG 13:48
PROVIDERS: PCP Internal Medicine; Visit Provider Internal Medicine
DX: R06.00 Dyspnea, unspecified (principal); I10 Essential (primary) hypertension; I08.3 Combined rheumatic disorders of mitral, aortic and tricuspid valves
CPT/HCPCS: 93306

== ENCOUNTER 2023-07-18 08:41 | Outpatient (CLI) | payer MEDICARE, SELFPAY | END 2023-07-18 08:42 | disposition home or self-care (01) | LOC: CHSCARD 08:43 | PROVIDERS: PCP Internal Medicine; Visit Provider Internal Medicine | DX: R06.00 Dyspnea, unspecified (principal); R94.2 Abnormal results of pulmonary function studies | CPT/HCPCS: 94060; 94726; 94729; 95012 ==

== ENCOUNTER 2024-10-21 11:51 | Outpatient (CLI) | payer MEDICARE, SELFPAY ==
--- NOTE | ~2024-10-21 | XR_ITS ---
Right Knee Technique: AP, lateral, and sunrise views were obtained. Clinical History: Pain Findings: No fracture or dislocation is seen. There is medial compartment narrowing with moderate to advanced tricompartmental osteophyte formation.. Soft tissues are unremarkable. No joint effusion is seen. 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 Reviewed, dictated and finalized at location . 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
--- OUTSIDE RECORDS SUMMARY | 2024-10-21 12:26 | XMS_ITS | Clinical Summary ---
Author Organization [facility] Address [address] [place] [address] Care Team Providers Care Knowledge Management Advisor Name Role Phone Jocelyne Rosario MD Primary Care Provider [phone] Social History Tobacco Use Types Packs/Day Years Used Date Smoking Tobacco: Never Assessed Sex and Gender Information Value Date Recorded Sex Assigned at Not on file Legal Sex Male 5:13 PM CDT Gender Identity Not on file Sexual Orientation Not on file Plan of Treatment Health Maintenance Due Date Last Done Comments Colorectal Cancer Screening Colonoscopy (10 Years) 1950 Hepatitis C 1968 DTaP, Tdap and Td Vaccines ( 1 - Tdap) 1969 Zoster Vaccines (1 of 2) 2000 Annual Medicare Wellness Visit 11/10/2015 Pneumococcal Vaccine: 65+ Ye ars (1 of 1 - PCV) 11/10/2015 COVID-19 Vaccine ( - 2023-2 5 season) 2024 Influenza Adult (#1) 2024 RSV Immunization or 60+ Years (1 - 1-dose 75+ series) 2025 Meningococcal B Vaccine Aged Out No l onger eligible based on patient's age to complete this topic Meningococcal Vaccine Aged Out No varghese woodrow eligible based on patient's age to complete this topic RSV Immunizations Under 20 Months Aged Out No longer eligible based on patient's age to complete this topic Insurance AETNA Care Teams Knowledge Management Advisor Relationship Specialty Start Date End Date Jocelyne Rosario MD [address] [place] [address] PCP - General INTERNAL MEDICINE 11/15/21
--- OUTSIDE RECORDS SUMMARY | 2024-10-21 12:26 | XMS_ITS | Clinical Summary ---
Author Organization [facility] al Address [address] [place] [address] Care Team Providers Care Aerospace Manager Name Role Phone Jocelyne Rosario MD Primary Care Provider [phone] Allergies No known active allergies Medications ibuprofen (ibuprofen) 200 mg tab/cap TAKE 1 CAPSULE EVERY 4 TO 6 HOURS. Active lisinopril (PRINIVIL,ZESTR IL) 20 mg tablet 40 mg daily Active amLODIPine (NORVASC) 5 mg tablet daily. Active predniSONE (DELTASONE) 10 mg tablet prn 03/05/2018 Active meloxicam (MOBIC) 15 mg tablet Take 15 mg by mouth daily 10mg every day Active Active Problems Problem Noted Date Diagnosed Date Chronic hepatitis C virus infection (CMS/HCC) Surgical History Surgery Date Site/Laterality Comments KNEE ARTHROSCOPY 09/11/2005 - 09/10/2006 Right Family History Medical History Relation Name Comments No Known Problems Father Relation Name Status Comments Father Mother Alive Social History Tobacco Use Types Packs/Day Years Used Date Smoking Tobacco: Former Cigarettes Q uit: 1997 Smokeless Tobacco: Never Alcohol Use Standard Drinks/Week Comments Yes 12 (1 standard drink = 0.6 oz pu re alcohol) Personal Safety Answer Date Recorded Getting School Help Needed Not on file 11/25 Sex and Gender Information Value Date Recorded Sex Assigned at Not on file Legal Sex Male 12:26 PM CDT Gender Identity Not on file Sexual Orientation Not on file Obstetrics History Last Filed Vital Signs Vital Sign Reading Time Taken Comments Blood Pressure 194/106 05/07/2020 7:48 AM CDT no headaches or dizziness Pulse 86 05/07/2020 7:48 AM CDT Temperature 36.7 C (98.1 F) 05/07/2020 7:48 AM CDT Respiratory Rate - - Oxygen Saturation 95% 05/07/2018 10: 34 AM CDT Inhaled Oxygen Concentration - - Weight 108 kg (238 lb 3.2 oz) 05/07/2020 7:48 AM CDT Height 185.4 cm (6' 1 ) 05/07/2020 7:48 AM CDT Body Mass Index 31.43 05/07/2020 7:48 AM CDT Plan of Treatment Not on file Insurance [employer] [facility] [employer] PPO [email or web address] AETNA [facility] Care Teams Aerospace Manager Relationship Specialty Start Date End Date Jocelyne Rosario MD [address] [place] [address] PCP - General 12/26/16
--- OUTSIDE RECORDS SUMMARY | 2024-10-21 12:26 | XMS_ITS | Referral Summary ---
Author Organization [facility] Address [address] [place] [address] Care Team Providers Care J2Ee Application Developer Name Role Phone Jocelyne Rosario MD Primary Care Provider [phone] Allergies No known active allergies Medications ibuprofen [...] Date Chronic hepatitis C virus infection (CMS/HCC) Social History Tobacco Use Types Packs/Day Years [...] on file Sexual Orientation Not on file Last Filed Vital Signs Vital Sign Reading [...] Plan of Treatment Not on file Insurance COVENTR [facility]RA [facility] COVENTRCan Leaf MartRA AETMICHELLE GILLETT PPO Care Teams J2Ee Application Developer Relationship Specialty Start Date End Date Jocelyne Rosario MD [address] [place] [address] PCP - General 12/26/16
[2024-10-21 12:32] LABS: Alanine Aminotransferase 27 U/L (16-63); Alkaline Phosphatase 82 U/L (46-116); Anion Gap 7 mmol/L (4-12); Aspartate Amino Transferase 18 U/L (15-37); Bilirubin,Total 0.7 mg/dL (0.00-1.00); Blood Urea Nitrogen 20 mg/dL (7-18); Calcium 8.9 mg/dL (8.5-10.1); Carbon Dioxide 29 mmol/L (21-32); Chloride 105 mmol/L (98-108); D Dimer 0.71 mg/L (0.19-0.50); Estimated Glomerular Filt Rate 56; Glucose 100 mg/dL (70-99); Osmolality Calculated 294 mOsm/kg (285-295); Potassium 4.5 mmol/L (3.5-5.1); Sodium 141 mmol/L (136-145); Total Protein 7.2 g/dL (6.4-8.2); Uric Acid 5.9 mg/dL (3.5-7.2)
== END 2024-10-21 11:52 | disposition home or self-care (01) ==
LOC: CHSLAB 11:54
PROVIDERS: PCP Internal Medicine; Visit Provider Internal Medicine
DX: M79.89 Other specified soft tissue disorders (principal); M25.561 Pain in right knee; M16.11 Unilateral primary osteoarthritis, right hip
CPT/HCPCS: 36415; 73564; 80053; 84550; 85380

== ENCOUNTER 2024-10-21 15:47 | Outpatient (CLI) | payer MEDICARE, SELFPAY ==
--- NOTE | ~2024-10-21 | US_ITS ---
EXAMINATION: US venous doppler [facility] DATE: 10/21/2024 16:26 INDICATION: Left lower limb pain. TECHNIQUE: Grayscale ultrasound images without and with compression and Doppler ultrasound images of the left lower extremity veins were obtained. COMPARISON: None. FINDINGS: The visualized portions of left common femoral vein, profunda (deep) femoral vein, femoral vein, popl iteal vein, peroneal veins, posterior tibial veins, and greater saphenous vein outflow are patent. IMPRESSION: 1. No deep venous thrombosis. Reviewed, dictated and finalized at location A. ECTION SYSTEMS WORKER
--- OUTSIDE RECORDS SUMMARY | 2024-10-21 15:52 | XMS_ITS | Clinical Summary ---
Author Organization [facility] Address [address] [place] [address] Care Team Providers Care Lending Activities Supervisor Name Role Phone Jocelyne Rosario MD Primary Care Provider [phone] Social History Tobacco Use Types Packs/Day Years [...] complete this topic Insurance AETNA Care Teams Lending Activities Supervisor Relationship Specialty Start Date End Date Jocelyne Rosario MD [address] [place] [address] PCP - General INTERNAL MEDICINE 11/15/21
--- OUTSIDE RECORDS SUMMARY | 2024-10-21 15:52 | XMS_ITS | Clinical Summary ---
Author Organization [facility] al Address [address] [place] [address] Care Team Providers Care Ip Attorney Name Role Phone Jocelyne Rosario MD Primary Care Provider [phone] Allergies No known active allergies Medications ibuprofen [...] Plan of Treatment Not on file Insurance [employer] [facility] Access Med[employer] PPO [id number] AETNA [facility] Care Teams Ip Attorney Relationship Specialty Start Date End Date Jocelyne Rosario MD [address] [place] [address] PCP - General 12/26/16
--- OUTSIDE RECORDS SUMMARY | 2024-10-21 15:52 | XMS_ITS | Referral Summary ---
Author Organization [facility] al Address [address] [place] [address] Care Team Providers Care Chair Spring Assembler Name Role Phone Jocelyne Rosario MD Primary Care Provider [phone] Allergies No known active allergies Medications ibuprofen [...] of Treatment Not on file Insurance COVENTR myAchyRA [facility] COVENTRWaypoint Health InnovatoinsRA AETMICHELLE [place] PPO Care Teams Chair Spring Assembler Relationship Specialty Start Date End Date Jocelyne Rosario MD [address] [place] [address] PCP - General 12/26/16
== END 2024-10-21 15:48 | disposition home or self-care (01) ==
PROVIDERS: PCP Internal Medicine; Visit Provider Internal Medicine
DX: R22.42 Localized swelling, mass and lump, left lower limb (principal)
CPT/HCPCS: 93971

== ENCOUNTER 2024-11-02 20:17 | Emergency (ER) | payer MEDICARE, SELFPAY ==
--- NOTE | ~2024-11-02 | CT_ITS ---
EXAMINATION: CT abdomen pelvis w con DATE: 11/02/2024 21:34 INDICATION: Acute abdominal pain. TECHNIQUE: Computed tomography (CT) of the abdomen and pelvis was performed with 100 mL Omnipaque 350 intravenous contrast. Automated exposure control and iterative reconstruction technique were employe d. The dose-length product was 1381.91 mGy-cm. COMPARISON: None. FINDINGS: The visualized portions of lung bases demonstrate mild atelectasis. No pleural effusion. Th e heart size is normal. No pericardial effusion. The liver, gallbladder, spleen, pancreas, adrenal gl ands, and right kidney are normal. There is a delayed left-sided contrast nephrogram. There are cysts in left kidney measuring up to 9 mm. There is mild left hydronephrosis and proximal hydroureter. The re is a 3 mm stone in proximal left ureter. The prostate is moderately enlarged. There is diverticulo sis of the colon without evidence of diverticulitis. There are no dilated loops of bowel. The appendi x is normal. There are no pathologically enlarged lymph nodes. There is no free intraperitoneal fluid . There are bilateral inguinal hernias containing fat. There are chronic bilateral L5 pars defects. T here is severe thoracic and lumbar spondylosis. IMPRESSION: 1. 3 mm stone in proximal left ureter with mild left hydronephrosis and proximal hydroureter. Reviewed, dictated and finalized at location A. AND BEVERAGE COORDINATOR IMPRESSION: 1. 3 mm stone in proximal left ureter with mild left hydronephrosis and proxima l hydroureter.
--- OUTSIDE RECORDS SUMMARY | 2024-11-02 20:18 | XMS_ITS | Referral Summary ---
Author Organization [facility] al Address [address] [place] [address] Care Team Providers Care Grip Wrapper Name Role Phone Jocelyne Rosario MD Primary Care Provider [phone] Allergies No known active allergies Medications ibuprofen [...] of Treatment Not on file Insurance COVENTR CaravanRA [facility]Me[facility] ERO COVENTRSpirus MedicalRA AETMICHLELE [place] PPO Care Teams Grip Wrapper Relationship Specialty Start Date End Date Jocelyne Rosario MD [address] [place] [address] PCP - General 12/26/16
--- OUTSIDE RECORDS SUMMARY | 2024-11-02 20:18 | XMS_ITS | Clinical Summary ---
Author Organization [facility] al Address [address] [place] [address] Care Team Providers Care Boat Driver Name Role Phone Jocelyne Rosario MD Primary Care Provider [phone] Allergies No known active allergies Medications ibuprofen [...] Plan of Treatment Not on file Insurance COVYuMingle [facility] MediSapiens PPO COVLightyear Network Solutions AETNA [facility] PPO Care Teams Boat Driver Relationship Specialty Start Date End Date Jocelyne Rosario MD [address] [place] [address] PCP - General 12/26/16
--- OUTSIDE RECORDS SUMMARY | 2024-11-02 20:18 | XMS_ITS | Clinical Summary ---
Author Organization [facility] Address [address] [place] [address] Care Team Providers Care Singing Messenger Name Role Phone Jocelyne Rosario MD Primary Care Provider [phone] Social History Tobacco Use Types Packs/Day Years [...] complete this topic Insurance AETNA Care Teams Singing Messenger Relationship Specialty Start Date End Date Jocelyne Rosario MD [address] [place] [address] PCP - General INTERNAL MEDICINE 11/15/21
[2024-11-02 20:22] VITALS: BP 211/102; PULSE 96; RESP 20; TEMP 35.9; O2SAT 96
[2024-11-02] MEDS: ONDANSETRON INJ 4 MG/2 ML VIAL IV PUSH (20:36)
--- NOTE | 2024-11-02 20:36 | ECG_ITS ---
Test Date: 2024-11-02 20:54:51 Measurements Intervals [place] Rate: 99 P: 57 W[place]: 175 QRS: 80 QRSD: 100 T: 47 QT: 341 QTc: 439 Interpretive Statements SINUS RHYTHM WITH FREQUENT VENTRICULAR PREMATURE COMPLEXES BASELINE ARTIFACT- V3 ABNORMAL ECG No previous ECG available for comparison Electronically Signed On 11-03-2024 07:11:25 SENIOR STOCK PLAN ADMINISTRATOR by David Richardson D.O.
--- NOTE | 2024-11-02 20:39 | ED_ITS ---
HPI - Abdominal Pain General Chief Complaint: Abdominal Pain Stated Complaint: Abd Pain Time Seen by Provider: 11/02/24 20:35 Related Data Home Medications ?Medication ?Instructions ?Recorded ?Confirmed ?Last Taken ?Type amlodipine 10 mg tablet 10 mg PO QAM 07/09/20 10/26/20 10/26/20 04:00 History lisinopril 20 mg tablet 40 mg PO QAM 10/16/20 10/26/20 1 Day Ago History ~10/25/20 Allergies Allergy/AdvReac Type Severity Reaction Status Date / Time No Known Allergies Allergy Verified 10/26/20 07:43 [facility] Past Medical History Medical History (Updated 11/02/24 @ 22:59 by Giovanni Field MD) Rheumatoid arthritis History of hepatitis C 2016 - treated Hypertension Surgical History Surgical History (Updated 10/27/20 @ 11:44 by Mia Kat PA-C) History of total left knee replacement (TKR) Family History Family History (Updated 10/27/20 @ 11:45 by Mia Kat PA-C) Mother Diabetes mellitus Social History Social History (Updated 10/27/20 @ 11:47 by Mia Kat PA-C) Social History: Mr. Roche lives at home with his . He is independent in his ADLs. He is retired. He designates his as his surrogate decision maker and would like to be a full code. Smoking packs per day: 1 Smoking cigarettes per day: 20.0 Years smoked: 32 Smoking pack-years: 32.00 Smoking status: Former smoker Tobacco type: cigarettes Second hand tobacco smoke exposure: No Smoking end date: 03/11/94 Additional smoking assessment comments: DENIES ANY FORM OF TOBACCO/NICOTINE USE Alcohol intake: current Alcohol use details: Reports drinking alcohol 2-3 times weekly, approximately 3-4 drinks per setting. Drinks beer and whiskey. Substance use: current Substance use type: marijuana Other substance usage details: Reports medical marijuana use weekly (smokes marijuana) Living arrangements: with family Additional living arrangements comments: Occupation/Education: retired Spiritual care concerns: No Course Vital Signs Vital signs: Vital Signs Temperature 35.9 C L 11/02/24 20:22 Pulse Rate 96 11/02/24 20:22 Respiratory Rate 20 11/02/24 20:22 Blood Pressure 211/102 H 11/02/24 20:22 Pulse Oximetry 96 11/02/24 20:22 Oxygen Delivery Room Air 11/02/24 20:22 Temperature 35.9 C L 11/02/24 20:22 Pulse Rate 96 11/02/24 20:22 Respiratory Rate 20 11/02/24 20:22 Blood Pressure 211/102 H 11/02/24 20:22 Pulse Oximetry 96 11/02/24 20:22 Oxygen Delivery Room Air 11/02/24 20:22 MDM - Abdominal Pain Lab Data 11/02/24 20:30 11/02/24 20:30 Labs: Lab Results 11/02/24 Range/Units 20:30 WBC Pending RBC Pending Hgb Pending Hct Pending MCV Pending MCH Pending MCHC Pending RDW Pending Plt Count Pending MPV Pending Immature Gran % (Auto) Pending Neut % (Auto) Pending Lymph % (Auto) Pending [place] % (Auto) Pending Eos % (Auto) Pending Baso % (Auto) Pending Lymph # (Auto) Pending [place] # (Auto) Pending Eos # (Auto) Pending Baso # (Auto) Pending Abs Immat Gran (auto) Pending Absolute Neuts (auto) Pending Absolute Nucleated RBC Pending Nucleated RBC % Pending Sodium Pending Potassium Pending Chloride Pending Carbon Dioxide Pending Anion Gap Pending BUN Pending Creatinine Pending Estim Creat Clear Calc Pending Estimated GFR Pending Glucose Pending Calculated Osmolality Pending Calcium Pending Total Bilirubin Pending AST Pending ALT Pending Alkaline Phosphatase Pending Total Protein Pending Albumin Pending Lipase Pending Discharge Plan Discharge Clinical Impression: Kidney stone Patient Disposition: Home, Self-Care Condition: Stable Instructions: Antibiotic Form, Kidney Stones (ED) Additional Instructions: you have a 3 mm kidney stone. This is small enough that it will likely pass on its own. I am writing a medication for you call tamsulosin that I would like you to take for the next couple of weeks. This may also help the stone pass. I am also sending you with some pain medicine in case her pain comes back. if you develop new intense pain that does not respond to the pain medicine and given you or if you develop a high fever shaking chills or anything else that makes you think you have an infection please return to the emergency room immediately. You were noted to have elevated blood pressure at today's visit some but not all of this is likely attributable to pain. Please continue working with your primary care provider to address her blood pressure. Patient Language: Greenlandic Prescriptions: No Action amlodipine 10 mg Tablet 10 mg PO QAM lisinopril 20 mg Tablet 40 mg PO QAM acetaminophen 500 mg Tablet 1,000 mg PO Q6H Qty: 90 0RF Eliquis 2.5 mg Tablet 2.5 mg PO Q12HR Qty: 27 0RF celecoxib [Celebrex] 200 mg Capsule 200 mg PO DAILY@0800 Qty: 14 0RF cephalexin 500 mg Capsule 500 mg PO Q6HR Qty: 28 0RF sennosides-docusate sodium [Senokot-S] 8.6-50 mg Tablet 2 tab PO BID Qty: 60 0RF oxycodone 5 mg Tablet 5 mg PO Q4HR Qty: 50 0RF polyethylene glycol 3350 [Miralax] 17 gram Powder In Packet 17 g PO QAM Qty: 30 0RF aspirin 81 mg tablet,delayed release (DR/EC) 81 mg PO BID Qty: 60 0RF Rx Instructions: start day after last eliquis dose metoprolol succinate [Toprol XL] 100 mg Tablet Extended Release 24 Hr 100 mg PO QAM Qty: 30 0RF Follow-up/Referrals: Jocelyne Rosario MD [Primary Care Provider] -
[2024-11-02 20:41] LABS: Basophils Absolute Auto 0.05 K/mm3 (0.00-0.10); Basophils Percent Auto 0.3 % (0.0-1.0); Eosinophils Absolute Auto 0.45 K/mm3 (0.02-0.50); Eosinophils Percent Auto 2.9 % (1.0-6.0); Hematocrit 48.5 % (37.0-46.0); Hemoglobin 15.8 g/dL (12.4-15.3); Immature Granulocyte Absolute 0.14 K/mm3 (0.00-0.00); Immature Granulocyte Percent A 0.9 % (0.0-0.0); Lymphocytes Absolute Auto 1.05 K/mm3 (1.10-4.50); Lymphocytes Percent Auto 6.8 % (18.0-42.0); Mean Corpuscular HGB Conc 32.6 g/dL (32-36); Mean Corpuscular Hemoglobin 30.3 pg (27.0-31.0); Mean Corpuscular Volume 92.9 fL (78.0-102.0); Mean Platelet Volume 9.8 fl (8.7-11.0); Monocytes Absolute Auto 1.23 K/mm3 (0.10-0.90); Neutrophils Absolute Auto 12.43 K/mm3 (1.70-7.20); Neutrophils Percent Auto 81.1 % (50.0-70.0); Platelet Count Result 226 K/mm3 (150-420); Red Blood Count 5.22 M/mm3 (4.70-6.10); Red Cell Distribution Width 12.4 % (11.6-14.4); White Blood Count 15.4 K/mm3 (4.8-10.8)
[2024-11-02] MEDS: SODIUM CHLORIDE 0.9% IV 1,000 ML 999 ML IV CONT (20:44)
[2024-11-02] MEDS: MORPHINE SULFATE (*CRX) 2 MG/ML INJ IV PUSH (20:44)
--- OUTSIDE RECORDS SUMMARY | 2024-11-02 20:49 | XMS_ITS | Clinical Summary ---
Author Organization [facility] Address [address] [place] [address] Care Team Providers Care Obstetrics Teacher Name Role Phone Jocelyne Rosario MD Primary Care Provider [phone] Social History Tobacco Use Types Packs/Day Years [...] complete this topic Insurance AETNA Care Teams Obstetrics Teacher Relationship Specialty Start Date End Date Jocelyne Rosario MD [address] [place] [address] PCP - General INTERNAL MEDICINE 11/15/21
--- OUTSIDE RECORDS SUMMARY | 2024-11-02 20:49 | XMS_ITS | Referral Summary ---
Author Organization [facility] al Address [address] [place] [address] Care Team Providers Care Family And Consumer Sciences Teacher Name Role Phone Jocelyne Rosario MD Primary Care Provider [phone] Allergies No known active allergies Medications ibuprofen [...] of Treatment Not on file Insurance COVENTR WebcollageRA [employer] LLCSMARTProfessional, LLCHCA [facility] COVENTRUpfront Media GroupRA AETMICHELLE [place] PPO Care Teams Family And Consumer Sciences Teacher Relationship Specialty Start Date End Date Jocelyne Rosario MD [address] [place] [address] PCP - General 12/26/16
--- OUTSIDE RECORDS SUMMARY | 2024-11-02 20:49 | XMS_ITS | Clinical Summary ---
Author Organization [facility] al Address [address] [place] [address] Care Team Providers Care Associate Sales Name Role Phone Jocelyne Rosario MD Primary Care Provider [phone] Allergies No known active allergies Medications ibuprofen [...] Plan of Treatment Not on file Insurance COVHera Therapeutics [facility] [email or web address] PPO COVJungleCents AETNA [facility] PPO Care Teams Associate Sales Relationship Specialty Start Date End Date Jocelyne Rosario MD [address] [place] [address] PCP - General 12/26/16
[2024-11-02 20:50] VITALS: BP 174/92; PULSE 97; RESP 20; O2SAT 93
[2024-11-02] MEDS: MORPHINE SULFATE (*CRX) 2 MG/ML INJ 4 MG IV PUSH (21:03)
[2024-11-02 21:14] LABS: Alanine Aminotransferase 30 U/L (16-63); Albumin Level 4.1 g/dL (3.4-5.0); Alkaline Phosphatase 94 U/L (46-116); Anion Gap 12 mmol/L (4-12); Aspartate Amino Transferase 19 U/L (15-37); Bilirubin,Total 0.9 mg/dL (0.00-1.00); Blood Urea Nitrogen 32 mg/dL (7-18); Calcium 8.7 mg/dL (8.5-10.1); Carbon Dioxide 26 mmol/L (21-32); Chloride 102 mmol/L (98-108); Estimated CRCL calculation 38 ml/min; Estimated Glomerular Filt Rate 31; Glucose 148 mg/dL (70-99); Lipase 18 U/L (16-77); Osmolality Calculated 299 mOsm/kg (285-295); Potassium 4.5 mmol/L (3.5-5.1); Sodium 140 mmol/L (136-145); Total Protein 7.3 g/dL (6.4-8.2)
[2024-11-02 21:44] LABS: Troponin I 5.3 ng/L (0.00-60.4)
[2024-11-02 22:08] LABS: Add Urine Microscopic? YES; Appearance Urine Clear (Clear); Bilirubin Urine Negative (Negative); Blood Urine 3+ (Negative); Color Urine Light Yellow (Yellow); Glucose Urine UA Negative (Negative); Ketones Urine Negative (Negative); Leukocyte Esterase Ur Negative LEU/UL (Negative); Nitrate Urine Negative (Negative); Protein Urine Negative (Negative); Specific Grav Ur 1.025 (1.010-1.020); Urobilinogen Urine 0.2 mg/dL (0.2-1.0)
[2024-11-02 22:36] LABS: Budding Yeast Urine Present /hpf; RBC Urine 21-50 /hpf (0-2)
[2024-11-02 22:42] VITALS: BP 153/87; PULSE 100; RESP 20; O2SAT 97
[2024-11-02] MEDS: TAMSULOSIN HCL 0.4 MG CAPSULE PO (23:00)
--- NOTE | 2024-11-02 23:07 | ED_ITS ---
HPI - Abdominal Pain General Chief Complaint: Abdominal Pain Stated Complaint: Abd Pain Time Seen by Provider: 11/02/24 20:35 History of Present Illness HPI narrative: Patient had a sudden onset severe acute lower left quadrant abdominal pain at approximately 3:00 p.m. on 11/02/2024. This pain was associated by nausea and dry heaving. Patient also reported a rock hard bowel movement earlier today. He denies any associated chest pain or shortness of breath. He denies any fever, chills. Related Data Home Medications ?Medication ?Instructions ?Recorded ?Confirmed ?Last Taken ?Type amlodipine 10 mg tablet 10 mg PO QAM 07/09/20 10/26/20 10/26/20 04:00 History lisinopril 20 mg tablet 40 mg PO QAM 10/16/20 10/26/20 1 Day Ago History ~10/25/20 Allergies Allergy/AdvReac Type Severity Reaction Status Date / Time No Known Allergies Allergy Verified 10/26/20 07:43 [facility] Past Medical History Medical History (Updated 11/02/24 @ 23:09 by Giovanni Field MD) Kidney stone Rheumatoid arthritis History of hepatitis C 2016 - treated Hypertension Surgical History Surgical History (Updated 10/27/20 @ 11:44 by Mia Kat PA-C) History of total left knee replacement (TKR) Family History Family History (Updated 10/27/20 @ 11:45 by Mia Kat PA-C) Mother Diabetes mellitus Social History Social History (Updated 10/27/20 @ 11:47 by Mia Kat PA-C) Social History: Mr. Roche lives at home with his . He is independent in his ADLs. He is retired. He designates his as his surrogate decision maker and would like to be a full code. Smoking packs per day: 1 Smoking cigarettes per day: 20.0 Years smoked: 32 Smoking pack-years: 32.00 Smoking status: Former smoker Tobacco type: cigarettes Second hand tobacco smoke exposure: No Smoking end date: 03/11/94 Additional smoking assessment comments: DENIES ANY FORM OF TOBACCO/NICOTINE USE Alcohol intake: current Alcohol use details: Reports drinking alcohol 2-3 times weekly, approximately 3-4 drinks per setting. Drinks beer and whiskey. Substance use: current Substance use type: marijuana Other substance usage details: Reports medical marijuana use weekly (smokes marijuana) Living arrangements: with family Additional living arrangements comments: Occupation/Education: retired Spiritual care concerns: No Exam 2 Narrative: GEN: Awake, alert, and appropriate to situation. Diaphoretic. Dry heaving. Appears extremely uncomfortable. noted to have elevated blood pressures HEENT: No rhinorrhea noted, mucous membranes moist. No scleral icterus or conjunctival injection. CV: Normal rate, regular rhythm, S1S2 no M/G/R. 2+ distal pulses all extremities. No peripheral edema noted. PULM: Non-labored respiration. Clear to auscultation bilaterally. No wheezes, rales, rhonchi. GI: Abdomen soft, tender in the bilateral lower quadrants. No rigidity, distention or guarding.? negative bed bone NEURO: Normal speech. No lateralizing or focal deficits noted. Course Vital Signs Vital signs: Vital Signs Temperature 35.9 C L 11/02/24 20:22 Pulse Rate 96 11/02/24 20:22 Respiratory Rate 20 11/02/24 20:22 Blood Pressure 211/102 H 11/02/24 20:22 Pulse Oximetry 96 11/02/24 20:22 Oxygen Delivery Room Air 11/02/24 20:22 Temperature 35.9 C L 11/02/24 20:22 Pulse Rate 100 11/02/24 22:42 Respiratory Rate 20 11/02/24 22:42 Blood Pressure 153/87 H 11/02/24 22:42 Pulse Oximetry 97 11/02/24 22:42 Oxygen Delivery Room Air 11/02/24 22:42 MDM - Abdominal Pain MDM Narrative Medical decision making narrative: Patient was placed in Room #:? 1 Independent Historian: patient External Source Review: medical record Differential diagnosis includes but not limited to:? broad differential initially that included cholecystitis, pancreatitis, SBO, ileus, , kidney stone, , gastroenteritis, mesenteric ischemia Medications were Reviewed: home medications including blood pressure medications Independently Interpreted by me: lab results Medications, treatment, ED course: CBC, CMP, CT abdomen pelvis - CT abdomen shows a 3 mm nonobstructing stone on the left which is almost certainly the explanation for his pain Social situation impacting patients care: lives independently in the community Shared decision making:? discussed management options with the patient including that he most likely will pass the stone on his own. He is amenable to taking tamsulosin and having some p.r.n. hydrocodone for breakthrough pain in addition to his home meloxicam. Accepting physician: None DISCHARGE DIAGNOSIS: left kidney stone DISPOSITION: home with self-care CONDITION AT DISCHARGE:? stable Lab Data 11/02/24 20:30 11/02/24 20:30 Labs: Lab Results 11/02/24 11/02/24 Range/Units 20:30 20:32 WBC 15.4 H (4.8-10.8) K/mm3 RBC 5.22 (4.70-6.10) M/mm3 Hgb 15.8 H (12.4-15.3) g/dL Hct 48.5 H (37.0-46.0) % MCV 92.9 (78.0-102.0) fL MCH 30.3 (27.0-31.0) pg MCHC 32.6 (32-36) g/dL RDW 12.4 (11.6-14.4) % Plt Count 226 (150-420) K/mm3 MPV 9.8 (8.7-11.0) fl Immature Gran % (Auto) 0.9 H (0.0-0.0) % Neut % (Auto) 81.1 H (50.0-70.0) % Lymph % (Auto) 6.8 L (18.0-42.0) % [place] % (Auto) 8.0 (2.0-11.0) % Eos % (Auto) 2.9 (1.0-6.0) % Baso % (Auto) 0.3 (0.0-1.0) % Lymph # (Auto) 1.05 L (1.10-4.50) K/mm3 [place] # (Auto) 1.23 H (0.10-0.90) K/mm3 Eos # (Auto) 0.45 (0.02-0.50) K/mm3 Baso # (Auto) 0.05 (0.00-0.10) K/mm3 Abs Immat Gran (auto) 0.14 H (0.00-0.00) K/mm3 Absolute Neuts (auto) 12.43 H (1.70-7.20) K/mm3 Absolute Nucleated RBC 0.00 (0.00-0.00) K/mm3 Nucleated RBC % 0.0 (0-0.0) % Sodium 140 (136-145) mmol/L Potassium 4.5 (3.5-5.1) mmol/L Chloride 102 (98-108) mmol/L Carbon Dioxide 26 (21-32) mmol/L Anion Gap 12 (4-12) mmol/L BUN 32 H (7-18) mg/dL Creatinine 2.10 H (0.70-1.30) mg/dL Estim Creat Clear Calc 38 ml/min Estimated GFR 31 L (59 - ) Glucose 148 H (70-99) mg/dL Calculated Osmolality 299 H (285-295) mOsm/kg Calcium 8.7 (8.5-10.1) mg/dL Total Bilirubin 0.9 (0.00-1.00) mg/dL AST 19 (15-37) U/L ALT 30 (16-63) U/L Alkaline Phosphatase 94 (46-116) U/L Troponin I 5.3 (0.00-60.4) ng/L Total Protein 7.3 (6.4-8.2) g/dL Albumin 4.1 (3.4-5.0) g/dL Lipase 18 (16-77) U/L Urine Color Light yellow (Yellow) Urine Appearance Clear (Clear) Urine pH 6.0 (5.0-8.0) Ur Specific [place] 1.025 H (1.010-1.020) Urine Protein Negative (Negative) Urine Glucose (UA) Negative (Negative) Urine Ketones Negative (Negative) Ur Blood (Man) 3+ H (Negative) Urine Nitrate Negative (Negative) Urine Bilirubin Negative (Negative) Urine Urobilinogen 0.2 (0.2-1.0) mg/dL Leukocyte Esterase Rfl Negative (Negative) ANGELA/UL Urine RBC 21-50 H (0-2) /hpf Urine Yeast (Budding) Present H (None) /hpf Imaging Data Radiologist's impression: ITS Impressions Abdomen/Pelvis CT 11/02/24 21:35 IMPRESSION: 1. 3 mm stone in proximal left ureter with mild left hydronephrosis and proximal hydroureter. Discharge Plan Discharge Clinical Impression: Kidney stone Patient Disposition: Home, Self-Care Condition: Stable Instructions: Antibiotic Form, Kidney Stones (ED) Additional Instructions: you have a 3 mm kidney stone. This is small enough that it will likely pass on its own. I am writing a medication for you call tamsulosin that I would like you to take for the next couple of weeks. This may also help the stone pass. I am also sending you with some pain medicine in case her pain comes back. if you develop new intense pain that does not respond to the pain medicine and given you or if you develop a high fever shaking chills or anything else that makes you think you have an infection please return to the emergency room immediately. You were noted to have elevated blood pressure at today's visit some but not all of this is likely attributable to pain. Please continue working with your primary care provider to address her blood pressure. Patient Language: Prydeinig Prescriptions: New tamsulosin 0.4 mg capsule 0.4 mg PO DAILY Qty: 14 0RF hydrocodone-acetaminophen 5-325 mg tablet 1 tablet PO Q8H PRN (Reason: pain) 5 Days Qty: 10 0RF No Action amlodipine 10 mg Tablet 10 mg PO QAM lisinopril 20 mg Tablet 40 mg PO QAM acetaminophen 500 mg Tablet 1,000 mg PO Q6H Qty: 90 0RF Eliquis 2.5 mg Tablet 2.5 mg PO Q12HR Qty: 27 0RF celecoxib [Celebrex] 200 mg Capsule 200 mg PO DAILY@0800 Qty: 14 0RF cephalexin 500 mg Capsule 500 mg PO Q6HR Qty: 28 0RF sennosides-docusate sodium [Senokot-S] 8.6-50 mg Tablet 2 tab PO BID Qty: 60 0RF oxycodone 5 mg Tablet 5 mg PO Q4HR Qty: 50 0RF polyethylene glycol 3350 [Miralax] 17 gram Powder In Packet 17 g PO QAM Qty: 30 0RF aspirin 81 mg tablet,delayed release (DR/EC) 81 mg PO BID Qty: 60 0RF Rx Instructions: start day after last eliquis dose metoprolol succinate [Toprol XL] 100 mg Tablet Extended Release 24 Hr 100 mg PO QAM Qty: 30 0RF Follow-up/Referrals: Jocelyne Rosario MD [Primary Care Provider] - Time of Disposition: 23:14
[2024-11-02 23:19] VITALS: BP 156/75; PULSE 98; RESP 18; TEMP 36.6; O2SAT 97
== END 2024-11-02 23:19 | disposition home or self-care (01) ==
PROVIDERS: Emergency Provider Family Medicine; PCP Internal Medicine
DX: N20.0 Calculus of kidney (principal); I10 Essential (primary) hypertension; M06.9 Rheumatoid arthritis, unspecified; Z87.891 Personal history of nicotine dependence
CPT/HCPCS: 36415; 74177; 80053; 81001; 83690; 84484; 85025; 93005; 96361; 96374; 96375; 99284; A9270; J2270; J2405; J7030; Q9967

== ENCOUNTER 2025-01-01 13:02 | Outpatient (CLI) | payer MEDICARE, SELFPAY ==
[2025-01-01 13:23] VITALS: BP 161/84; PULSE 92; RESP 14; TEMP 36.6; O2SAT 97; BMI 48.4
[2025-01-01 13:27] LABS: Hemoglobin 15.2 g/dL (12.4-15.3)
[2025-01-01 13:45] VITALS: BP 159/80; PULSE 88; RESP 14; TEMP 36.4; O2SAT 98
--- NOTE | 2025-01-01 13:53 | PC.NURSE ---
Patient tolerated Therapeutic Phlebotomy well. SEE patient care notes and attached written flow sheets.
--- OUTSIDE RECORDS SUMMARY | 2025-01-01 14:37 | XMS_ITS | Clinical Summary ---
Author Organization [facility] Address [address] [place] [address] Care Team Providers Care Installation Technician Name Role Phone Jocelyne Rosario MD Primary Care Provider [phone] Social History Tobacco Use Types Packs/Day Years [...] Td Vaccines ( 1 - Tdap) 1969 Pneumococcal Vaccine: 50+ Ye ars (1 of 1 - PCV) 2000 Zoster Vaccines (1 of 2) 2000 Annual Medicare Wellness Visit 11/10/2015 COVID-19 Vaccine ( - 2023-2 5 season) 2024 RSV Immunization or 60+ Years (1 [...] complete this topic Insurance AETNA Care Teams Installation Technician Relationship Specialty Start Date End Date Jocelyne Rosario MD [address] [place] [address] PCP - General INTERNAL MEDICINE 11/15/21
--- OUTSIDE RECORDS SUMMARY | 2025-01-01 14:37 | XMS_ITS | Referral Summary ---
Author Organization [facility] al Address [address] [place] [address] Care Team Providers Care Addictions Recovery Specialist Name Role Phone Jocelyne Rosario MD Primary Care Provider [phone] Allergies No known active allergies Medications ibuprofen [...] Diagnosed Date Chronic hepatitis C virus infection 12/26/2016 Social History Tobacco Use Types Packs/Day Years [...] Plan of Treatment Not on file Insurance COVENTRGenY MediumRA [facility] Jamn PPO COVENTRGenY MediumRA AETNA [place] PPO Care Teams Addictions Recovery Specialist Relationship Specialty Start Date End Date Jocelyne Rosario MD [address] [place] [address] PCP - General 12/26/16
--- OUTSIDE RECORDS SUMMARY | 2025-01-01 14:38 | XMS_ITS | Clinical Summary ---
Author Organization [facility] al Address [address] [place] [address] Care Team Providers Care Aba Therapist Name Role Phone Jocelyne Rosario MD Primary Care Provider [phone] Allergies No known active allergies Medications ibuprofen [...] Date Chronic hepatitis C virus infection 12/26/2016 Surgical History Surgery Date Site/Laterality Comments KNEE ARTHROSCOPY 09/11/2005 - 09/10/2006 Right Family History Medical History Relation Name Comments No Known Problems Father Relation Name Status Comments Father Mother Alive Social History Tobacco Use Types Packs/Day Years Used Date Smoking Tobacco: Former Cigarettes Q uit: 1998 Smokeless Tobacco: Never Alcohol Use Standard Drinks/Week [...] Plan of Treatment Not on file Insurance COVBrand Networks [facility] [employer] O COVGateway EDI AETNA [place] PPO Care Teams Aba Therapist Relationship Specialty Start Date End Date Jocelyne Rosario MD [address] [place] [address] PCP - General 12/26/16
== END 2025-01-01 13:03 | disposition home or self-care (01) ==
PROVIDERS: PCP Internal Medicine; Visit Provider Internal Medicine
DX: D64.9 Anemia, unspecified (principal); R68.89 Other general symptoms and signs; B18.2 Chronic viral hepatitis C
CPT/HCPCS: 36415; 85014; 85018; 99195

== ENCOUNTER 2025-01-14 12:51 | Outpatient (CLI) | payer MEDICARE, SELFPAY ==
--- OUTSIDE RECORDS SUMMARY | 2025-01-14 13:13 | XMS_ITS | Clinical Summary ---
Author Organization [facility] al Address [address] [place] [address] Care Team Providers Care Senior Benefits Specialist Name Role Phone Jocelyne Rosario MD Primary Care Provider [phone] Allergies No known active allergies Medications ibuprofen [...] Plan of Treatment Not on file Insurance COVNiko Niko [facility] [employer] O COVEDP Bi[employer] AETNA [place] PPO Care Teams Senior Benefits Specialist Relationship Specialty Start Date End Date Jocelyne Rosario MD [address] [place] [address] PCP - General 12/26/16
--- OUTSIDE RECORDS SUMMARY | 2025-01-14 13:13 | XMS_ITS | Clinical Summary ---
Author Organization [facility] Address [address] [place] [address] Care Team Providers Care Electric Organ Inspector And Repairer Name Role Phone Jocelyne Rosario MD Primary Care Provider [phone] Social History Tobacco Use Types Packs/Day Years [...] complete this topic Insurance AETNA Care Teams Electric Organ Inspector And Repairer Relationship Specialty Start Date End Date Jocelyne Rosario MD [address] [place] [address] PCP - General INTERNAL MEDICINE 11/15/21
--- OUTSIDE RECORDS SUMMARY | 2025-01-14 13:13 | XMS_ITS | Referral Summary ---
Author Organization [facility] al Address [address] [place] [address] Care Team Providers Care Autocad Name Role Phone Jocelyne Rosario MD Primary Care Provider [phone] Allergies No known active allergies Medications ibuprofen [...] Plan of Treatment Not on file Insurance COVENTRPreactRA [facility] [place] [address] COVENTRPreactRA AETNA [place] PPO Care Teams Autocad Relationship Specialty Start Date End Date Jocelyne Rosario MD [address] [place] [address] PCP - General 12/26/16
[2025-01-14 13:18] VITALS: BP 130/80; PULSE 74; RESP 14; TEMP 36.5; O2SAT 98; BMI 33.7
[2025-01-14 13:20] LABS: Hematocrit 41.3 % (37.0-46.0); Hemoglobin 13.8 g/dL (12.4-15.3)
--- NOTE | 2025-01-14 13:48 | PC.NURSE ---
Patient tolerated therapeutic phlebotomy well. 450 ml per calibrated scale removed. Snack given. Vital signs stable. Patient reports feeling good. SEE Patient care notes.
[2025-01-14 13:50] VITALS: BP 135/82; PULSE 80; RESP 14; TEMP 35.9; O2SAT 98
== END 2025-01-14 12:52 | disposition home or self-care (01) ==
PROVIDERS: PCP Internal Medicine; Visit Provider Internal Medicine
DX: E83.119 Hemochromatosis, unspecified (principal)
CPT/HCPCS: 36415; 85014; 85018; 99195

== ENCOUNTER 2025-03-12 07:41 | Outpatient (CLI) | payer MEDICARE, SELFPAY ==
--- OUTSIDE RECORDS SUMMARY | 2025-03-12 07:45 | XMS_ITS | Clinical Summary ---
Author Organization [facility] al Address [address] [place] [address] Care Team Providers Care Horses Or Mules Teamster Name Role Phone Jocelyne Rosario MD Primary Care Provider [phone] Allergies No known active allergies Medications ibuprofen [...] 7:48 AM CDT Height 185.4 cm (6' 1) 05/07/2020 7:48 AM CDT Body Mass Index 31.43 05/07/2020 7:48 AM CDT Plan of Treatment Not on file Insurance COVShaser [facility] Safend O COVcfgAdvance AETNA [place] PPO Care Teams Horses Or Mules Teamster Relationship Specialty Start Date End Date Jocelyne Rosario MD [address] [place] [address] PCP - General 12/26/16
--- OUTSIDE RECORDS SUMMARY | 2025-03-12 07:45 | XMS_ITS | Referral Summary ---
Author Organization [facility] al Address [address] [place] [address] Care Team Providers Care Car Sander Name Role Phone Jocelyne Rosario MD Primary Care Provider [phone] Allergies No known active allergies Medications ibuprofen [...] Plan of Treatment Not on file Insurance COVENTRiosil EnergyRA [facility] food.de PPO COVENTRiosil EnergyRA AETNA [place] PPO Care Teams Car Sander Relationship Specialty Start Date End Date Jocelyne Rosario MD [address] [place] [address] PCP - General 12/26/16
[2025-03-12 08:00] VITALS: BP 139/76; PULSE 80; RESP 14; TEMP 36.4; O2SAT 99; BMI 33.5
[2025-03-12 08:09] LABS: Hematocrit 44.9 % (37.0-46.0); Hemoglobin 15.1 g/dL (12.4-15.3)
[2025-03-12 08:30] VITALS: BP 130/71; PULSE 76; RESP 14; TEMP 36.4; O2SAT 99
[2025-03-12 08:34] LABS: Hematocrit 44.4 % (37.0-46.0); Hemoglobin 14.8 g/dL (12.4-15.3)
--- NOTE | 2025-03-12 08:54 | PC.NURSE ---
Tolerated therapeutic phlebotomy well.
== END 2025-03-12 07:42 | disposition home or self-care (01) ==
PROVIDERS: PCP Internal Medicine; Visit Provider Internal Medicine
DX: E83.119 Hemochromatosis, unspecified (principal)
CPT/HCPCS: 36415; 85014; 85018; 99195

== ENCOUNTER 2025-04-16 10:58 | Outpatient (CLI) | payer MEDICARE, SELFPAY ==
[2025-04-16 11:10] LABS: Hematocrit 45.1 % (37.0-46.0); Hemoglobin 14.9 g/dL (12.4-15.3); Mean Corpuscular HGB Conc 33.0 g/dL (32-36); Mean Corpuscular Hemoglobin 30.0 pg (27.0-31.0); Mean Corpuscular Volume 90.7 fL (78.0-102.0); Platelet Count Result 189 K/mm3 (150-420); Red Blood Count 4.97 M/mm3 (4.70-6.10); White Blood Count 6.3 K/mm3 (4.8-10.8)
--- OUTSIDE RECORDS SUMMARY | 2025-04-16 11:45 | XMS_ITS | Clinical Summary ---
Author Organization [facility] al Address [address] [place] [address] Care Team Providers Care Angle Shear Operator Name Role Phone Jocelyne Rosario MD Primary Care Provider [phone] Allergies No known active allergies Medications ibuprofen [...] Plan of Treatment Not on file Insurance [employer] [facility] [employer] O [email or web address] AETNA [place] PPO Care Teams Angle Shear Operator Relationship Specialty Start Date End Date Jocelyne Rosario MD [address] [place] [address] PCP - General 12/26/16
[2025-04-16 12:06] LABS: Anion Gap 7 mmol/L (4-12); Blood Urea Nitrogen 23 mg/dL (9-20); Calcium 9.5 mg/dL (8.4-10.2); Carbon Dioxide 27 mmol/L (22-30); Chloride 108 mmol/L (98-107); Estimated Glomerular Filt Rate 60; Glucose 90 mg/dL (65-110); Osmolality Calculated 297 mOsm/kg (285-295); Potassium 4.4 mmol/L (3.4-5.0); Sodium 142 mmol/L (137-145)
== END 2025-04-16 10:59 | disposition home or self-care (01) ==
LOC: CHSLAB 11:00
PROVIDERS: PCP Internal Medicine; Visit Provider Internal Medicine
DX: E83.110 Hereditary hemochromatosis (principal); I10 Essential (primary) hypertension
CPT/HCPCS: 36415; 80048; 85027

== ENCOUNTER 2025-04-18 10:25 | Outpatient (CLI) | payer MEDICARE, SELFPAY ==
[2025-04-18 11:37] LABS: Iron 86 ug/dL (49-181)
[2025-04-18 11:54] LABS: Ferritin 137.00 ng/mL (11.1-264)
== END 2025-04-18 10:26 | disposition home or self-care (01) ==
LOC: CHSLAB 10:26
PROVIDERS: PCP Internal Medicine; Visit Provider Internal Medicine
DX: E83.110 Hereditary hemochromatosis (principal)
CPT/HCPCS: 36415; 82728; 83540; 84466

== ENCOUNTER 2025-07-14 13:18 | Outpatient (CLI) | payer MEDICARE, SELFPAY ==
--- OUTSIDE RECORDS SUMMARY | 2025-07-14 14:33 | XMS_ITS | Clinical Summary ---
Author Organization [facility] Address [facility] [place] [address] Care Team Providers Care Link Fabric Machine Operator Name Role Phone Jocelyne Rosario MD Primary Care Provider [phone] Social History Tobacco Use Types Packs/Day Years [...] Wellness Visit 11/10/2015 COVID-19 Vaccine ( - 2024-2 6 season) 2025 Influenza Adult (#1) 2025 RSV Immunization or 60+ Years (1 - 1-dose 75+ series) 2025 Hepatitis A Vaccines Aged Out No long er eligible based on patient's age to complete this topic Meningococcal B Vaccine Aged Out No l onger eligible based on patient's age to complete this topic Meningococcal Vaccine Aged Out No varghese woodrow eligible based on patient's age to complete this topic RSV Immunizations Under 20 Months Aged Out No longer eligible based on patient's age to complete this topic Insurance AETNA MEDICARE Care Teams Link Fabric Machine Operator Relationship Specialty Start Date End Date Jocelyne Rosario MD [address] [place] [address] PCP - General INTERNAL MEDICINE 11/15/21
--- OUTSIDE RECORDS SUMMARY | 2025-07-14 14:33 | XMS_ITS | Clinical Summary ---
Author Organization [facility] al Address [address] [place] [address] Care Team Providers Care Bonus Clerk Name Role Phone Jocelyne Rosario MD Primary Care Provider [phone] Allergies No known active allergies Medications ibuprofen [...] Plan of Treatment Not on file Insurance COVQuickCheck Health [facility] [employer] PPO COVDerivix AETNA [place] PPO Care Teams Bonus Clerk Relationship Specialty Start Date End Date Jocelyne Rosario MD [address] [place] [address] PCP - General 12/26/16
[2025-07-14 14:44] LABS: Hematocrit 44.9 % (42.0-52.0); Hemoglobin 15.3 g/dL (14.0-18.0); Immature Granulocyte Percent A 0.2 % (0-0.5); Lymphocytes Absolute Auto 1.23 K/mm3 (0.9-3.2); Mean Corpuscular HGB Conc 34.1 g/dl (32-36); Mean Corpuscular Hemoglobin 30.7 pg (26-34); Mean Corpuscular Volume 90.0 fl (80-100); Nucleated Red Blood Cells Absolute Auto 0.000 K/mm3 (0.0-0.012); Nucleated Red Blood Cells Perc 0.0 % (0.0-0.2); Platelet Count Result 232 k/mm3 (150-375); Red Blood Count 4.99 M/mm3 (4.6-6.20); White Blood Count 8.6 K/mm3 (4.5-10.0)
[2025-07-14 14:55] LABS: INR 1.0; Prothrombin Time 13.0 Seconds (11.1-14.7)
[2025-07-14 14:56] LABS: Albumin Level 4.7 g/dL (3.5-5.1); Anion Gap 7 mmol/L (4-12); Blood Urea Nitrogen 24 mg/dL (9-20); Calcium 9.1 mg/dL (8.4-10.2); Carbon Dioxide 25 mmol/L (22-30); Chloride 105 mmol/L (98-107); Estimated Glomerular Filt Rate > 60; Glucose 100 mg/dL (65-110); Potassium 4.3 mmol/L (3.4-5.0); Sodium 137 mmol/L (137-145)
[2025-07-14 14:57] LABS: Partial Thromboplastin Time 30.7 Seconds (22.3-36.8)
[2025-07-14 14:59] LABS: Hemoglobin A1C 5.2 % (<5.7)
== END 2025-07-14 13:19 | disposition home or self-care (01) ==
LOC: ANHSURGERY 13:19
PROVIDERS: Anesthesiology; PCP Internal Medicine; Visit Provider Orthopaedic Surgery
DX: M17.11 Unilateral primary osteoarthritis, right knee (principal); E83.119 Hemochromatosis, unspecified; Z01.818 Encounter for other preprocedural examination
CPT/HCPCS: 36415; 80048; 80307; 82040; 83036; 85025; 85610; 85730; 87081

== ENCOUNTER 2025-07-18 08:00 | Outpatient (CLI) | payer MEDICARE, SELFPAY ==
--- NOTE | ~2025-07-18 | NM_ITS ---
EXAMINATION: NM gabby stress w perfusion DATE: 07/18/2025 10:49 INDICATION: Preop TECHNIQUE: Rest images were obtained following intravenous administration of 11.0 mCi Tc99m tetrofosmin (Myoview). The patient was infused intravenously with Lexiscan (regadenoson). Then, 33.4 mCi Tc99m tetrofosmin (Myoview) was administered intravenously, and stress images were obtained. Data was maria t nstructed into short axis and horizontal and vertical long axis SPECT images. Gated SPECT images were also obtained. COMPARISON: None. FINDINGS: There is no definite reversible or fixed perfusion abnormality to suggest ischemia or infarction. Left ventricular ejection fraction measures 63%. IMPRESSION: 1. No definite ischemia or infarct. 2. Normal left ventricular ejection fraction measuring 63%. Reviewed, dictated and finalized at location A. CTOR OF ACCOUNTING
--- OUTSIDE RECORDS SUMMARY | 2025-07-18 08:12 | XMS_ITS | Clinical Summary ---
Author Organization [facility] Address [facility] [place] [address] Care Team Providers Care Lpn Rn Name Role Phone Jocelyne Rosario MD Primary Care Provider [phone] Social History Tobacco Use Types Packs/Day Years [...] this topic Insurance AETNA MEDICARE Care Teams Lpn Rn Relationship Specialty Start Date End Date Jocelyne Rosario MD [address] [place] [address] PCP - General INTERNAL MEDICINE 11/15/21
--- OUTSIDE RECORDS SUMMARY | 2025-07-18 08:12 | XMS_ITS | Clinical Summary ---
Author Organization [facility] al Address [address] [place] [address] Care Team Providers Care Parking Officer Name Role Phone Jocelyne Rosario MD Primary Care Provider [phone] Allergies No known active allergies Medications ibuprofen [...] Plan of Treatment Not on file Insurance COVInquisitive Systems [facility] [employer]OT[employer] PPO COVBirchbox AETNA [place] PPO Care Teams Parking Officer Relationship Specialty Start Date End Date Jocelyne Rosario MD [address] [place] [address] PCP - General 12/26/16
--- NOTE | 2025-07-18 08:13 | EST_ITS ---
Patient Info Name: Ramy Roche Age: 74 years : 1950 Gender: Male Ht: 71 in Wt: 244 lbs BSA: 2.39 m2 HR: 88 bpm BP: 153 / 93 mmHg Exam Date: 07/18/2025 8:13 AM Patient Status: O Admit Date: 07/18/2025 Exam Type: CA stress gabby w NM A regadenoson stress test was performed. Staff Referring Physician: David Richardson DO Attending Provider: David Richardson DO Exercise Technologist: Nya Padilla Exercise Physician: David Richardson DO Summary 1. 1. Negative lexiscan stress test for ischemic ST changes by ECG criteria. 2. 2. Baseline hypertension. 3. 3. Nuclear scan to follow and will be reported separately. Please correlate with it. 4. 4. Patient informed of the above results. Protocol: Lexiscan Stress ECG Details Stage: REST Duration (min): 1 min : 10 sec HR (bpm): 87 SBP (mmHg): 153 DBP (mmHg): 93 Stage: REST Duration (min): 18 min : 7 sec HR (bpm): 87 SBP (mmHg): 153 DBP (mmHg): 93 Stage: STAGE 1 Duration (min): 0 min : 59 sec HR (bpm): 112 SBP (mmHg): 174 DBP (mmHg): 111 Stage: RECOVERY Duration (min): 1 min : 0 sec HR (bpm): 103 SBP (mmHg): 174 DBP (mmHg): 111 Stage: RECOVERY Duration (min): 2 min : 0 sec HR (bpm): 104 SBP (mmHg): 174 DBP (mmHg): 111 Stage: RECOVERY Duration (min): 3 min : 0 sec HR (bpm): 101 SBP (mmHg): 165 DBP (mmHg): 103 Stage: RECOVERY Duration (min): 4 min : 0 sec HR (bpm): 105 SBP (mmHg): 165 DBP (mmHg): 103 Stage: RECOVERY Duration (min): 5 min : 0 sec HR (bpm): 97 SBP (mmHg): 148 DBP (mmHg): 97 Stage: RECOVERY Duration (min): 5 min : 10 sec HR (bpm): 99 SBP (mmHg): 148 DBP (mmHg): 97 Rest HR: 87 bpm Peak HR: 112 bpm Rest Sys BP: 153 mmHg Peak Sys BP: 174 mmHg Max Pred HR: 146 bpm % Max Pred HR: 77 % Target HR: 124 bpm Max RPP: 19,488 bpm*mmHg Termination Reason: Completed protocol Cardiac Symptoms: Shortness of breath Total Time: 1 min : 0 sec Rest Powers BP: 93 mmHg Peak Powers BP: 111 mmHg Total Dose: 0.4 mg Resting ECG Sinus rhythm. Stress ECG No ST changes. Arrhythmias None. Report Signatures
== END 2025-07-18 08:01 | disposition home or self-care (01) ==
PROVIDERS: PCP Internal Medicine; Visit Provider Internal Medicine Cardiovascular Disease
DX: Z01.810 Encounter for preprocedural cardiovascular examination (principal)
CPT/HCPCS: 78452; 93017; A9502; J2785

== ENCOUNTER 2025-07-29 02:07 | Day surgery (SDC) | payer MEDICARE, SELFPAY ==
[2025-07-14 13:38] VITALS: BP 157/89; PULSE 69; RESP 16; TEMP 37.2; O2SAT 98; BMI 34.2
--- NOTE | 2025-07-14 14:00 | PC.NURSE ---
[facility] has started construction of its new state of the art ER which will open Spring 2026. With this, we anticipate parking may be a challenge for some our surgical patients and families. Parking spaces are limited but are available for all Surgical, obstetrics, and ER patients sharing this lot. If you arrive and find you are having a hard time finding a parking space, please note that we understand the challenges, please drive around the hospital and park near Hospital Entrance 1. When you enter this entrance, you can ask a volunteer to direct or take you back to the surgical waiting area to check in. We appreciate everyone?s understanding of these expected challenges while we build for your future. Report to the Outpatient Waiting Room, entrance under the green pavilion located off [address], at time ____06:00am___ on date _07/29/25 . Planned Procedure Time: _07:30am .? Time changes happen often and if your time is changed the preop area will call you the afternoon before. - You and your visitor will be asked to self-screen and do not enter if you have any COVID symptoms. Please call surgeon if you need to reschedule. - A mask is optional within the hospital at this time. Patients may have clear liquids (water, carbonated beverages, clear teas, apple juice) until 3 hours prior to surgery with a maximum of 20 ounces. - No food from midnight until time of surgery and no smoking, or chewing tobacco (or any form of nicotine). No chewing gum, candy or mints. (0430am) Take only the following medications with a SIP of water on the morning of surgery: Metoprolol and Amlodipine, Albuteral and Fluticasone DO NOT STOP ANY OF YOUR OTHER PRESCRIPTION MEDICATIONS PRIOR TO SURGERY EXCEPT THE FOLLOWING Hold all vitamins and supplements for 3 days per anesthesiologist. Date of last dose is 07/25/25 Medications to discontinue per physician HOLD MELOXICAM for [address] Abbasi Date to take last dose 07/21/25 Please no make-up, nail mongolian, hairspray, perfume, deodorant, or body powder the day of surgery.? No jewelry (including any body piercings) or valuables the day of surgery, leave them at home.? Please take a shower or bath the night before, or the morning of, surgery with an antibacterial soap.? HIBICLEANSE Scrub per . Wear comfortable, loose fitting clothing.? Bring overnight bag, tennis shoes, walker, phone/chrger - Jewelry must be removed prior to entering the operating room.? Rings and piercings that are not removed may be cut off. - The hospital will not accept responsibility for valuables.? - Please leave all valuables, including medications, at home the day of surgery. If you are going home after surgery, a licensed otr hazmat company driver must drive you home.? - NO public transportation without another adult if you receive anesthesia. - We recommend that an adult stay with you for 24 hours following discharge. - We also recommend that you do not drive, make important decision, drink alcoholic beverages, or take any drugs that were not prescribed by your health care provider for at least 24 hours after your discharge time. Follow any additional instructions given to you from your surgeon. Telephone instructions given to ____Patient and asked if any additional questions and then verbalized understanding. Patient advised to call surgeon office or pre surgery nurse liaison [phone] if any additional questions.
--- NOTE | 2025-07-28 12:17 | PM.IMHP ---
H&P: HPI History of Present Illness Date/Time: 07/28/25 12:17 Chief Complaint: Right knee DJD Narrative: 74-year-old male presents today for a right total knee arthroplasty. Patient underwent left total knee arthroplasty in 2020 and is very happy with his results. His right knee continues to be very symptomatic for him on a daily basis. It is limiting his activities. Patient has advanced medial compartment osteoarthritis in the right knee. He had cortisone injection in November of this year which only helped for about a week. He has been taking meloxicam daily with minimal improvement. More recently patient had to stop the meloxicam due to the elevation of his creatinine. At this point patient is fairly miserable with the symptoms and the change in his overall lifestyle because of the pain in the right knee. Patient feels at this point he is ready to proceed with total knee arthroplasty rather than continue non surgical treatment Review of Systems Review of Systems: All systems reviewed & are unremarkable except as noted in HPI and below PMFSH Past Medical History Medical History (Updated 07/04/25 @ 06:28 by David Richardson DO) Hypertension COPD (chronic obstructive pulmonary disease) Kidney stone Rheumatoid arthritis History of hepatitis C 2016 - treated Surgical History Surgical History (Updated 06/17/25 @ 12:54 by Augustin Sutton MD) History of total left knee replacement (TKR) Family History Family History Mother Diabetes mellitus Social History Social History (Updated 06/16/25 @ 13:07 by Kaylee Herbert [facility]) Social History: Mr. Roche lives at home with his . He is independent in his ADLs. He is retired. He designates his as his surrogate decision maker and would like to be a full code. Smoking packs per day: 1 Smoking cigarettes per day: 20.0 Years smoked: 32 Smoking pack-years: 32.00 Smoking status: Former smoker Tobacco type: cigarettes Second hand tobacco smoke exposure: Yes Smoking end date: 09/11/93 Additional smoking assessment comments: Denies any nicotine Alcohol intake: current Drinks per week: 4 Alcohol use details: weekends Substance use: current Substance use type: marijuana Other substance usage details: smoke a few times a week Do You Feel Safe in your Home?: Yes Lack of Transportation: No Lack of Food: Never True Current Housing: I Have Housing Concerned About Future Housing: No Difficulty Paying Gas/Electric Bills: No Difficulty Paying for Meds: No Currently Unemployed: No Education: High School Diploma/GED Difficulty w/ Childcare or Family Care: No Living arrangements: with family Additional living arrangements comments: [place] Occupation/Education: retired Spiritual care concerns: No Meds Home Medications and Allergies Home Medications ?Medication ?Instructions ?Recorded ?Confirmed ?Type albuterol sulfate 90 mcg/actuation 1 puff inhalation Q4H PRN 06/16/25 07/14/25 History aerosol inhaler (Ventolin HFA) bronchospasm losartan 100 mg tablet 100 mg PO DAILY 06/16/25 07/14/25 History mecobalamin (vitamin B12) 500 mcg 500 mcg PO .day 06/16/25 07/14/25 History chewable tablet meloxicam 15 mg tablet 15 mg PO DAILY 06/16/25 07/14/25 History metoprolol succinate 50 mg 100 mg PO DAILY 06/16/25 07/14/25 History tablet,extended release 24 hr pantoprazole 40 mg tablet,delayed 40 mg PO QHS 06/16/25 07/14/25 History release amlodipine 5 mg tablet 5 mg PO DAILY #30 tabs 07/04/25 07/14/25 Rx acetaminophen 500 mg tablet 1,000 mg PO ONCE PRN pain 07/14/25 07/14/25 History (Acetaminophen Extra Strength) fluticasone 250 mcg-salmeterol 50 1 inh inhalation Q12H PRN symptoms 07/14/25 07/14/25 History mcg/dose blistr powdr for inhalation Allergies Allergy/AdvReac Type Severity Reaction Status Date / Time celecoxib (From Celebrex) Allergy Mild Rash Verified 07/14/25 13:33 Exam Narrative: 74-year-old male alert pleasant. BMI he needs to 4.3. His right knee has a varus alignment. Normal stability in the knee. Range of motion is from 5-130 degrees. [id number] effusion. His right hip has full range of motion without discomfort, negative Stinchfield maneuver. Normal quad strength. There is no edema in either lower extremity. Normal sensation to both lower extremities. 2+ dorsalis pedis and posterior tibial artery pulse palpable Resp: Auscultation: clear to auscultation bilaterally Cardio: Rate: regular rate Rhythm: regular rhythm Assessment and Plan Assessment and plan (1) Osteoarthritis of right knee: Code(s): M17.11 - Unilateral primary osteoarthritis, right knee Status: Acute Plan 74-year-old male who has advanced medial compartment osteoarthritis right knee with continued symptoms. Nonsurgical treatment has not giving him satisfactory improvement of his symptoms. Patient is very happy with his left total knee arthroplasty in feels this point he is ready to proceed with the right. Surgical procedure as well as the risks and complications were discussed in detail all questions were answered and we will proceed. Patient will see his primary care doctor for pre-surgical clearance. He has seen cardiology in undergone stress test. There was no abnormalities to the stress test. He has been cleared from cardiology for surgery. He was started on amlodipine from cardiology due to hypertension. Patient will avoid any anti-inflammatories or aspirin products 1 week prior to surgery. Patient's nasal swab was negative. Hemoglobin 15.3 and platelets were 232. Chem panel is all within normal limits creatinine had improved to 1.1 and GFR was above 60.
[2025-07-29] VITALS (16 sets, daily range): BP systolic 124–159; BP diastolic 65–92; PULSE 95–114; RESP 10–24; TEMP 36.2–37.5; O2SAT 93–100
--- NOTE | ~2025-07-29 | XR_ITS ---
EXAMINATION: [id number], 07/29/2025 11:10 MECHANICAL SERVICE SPECIALIST HISTORY: POST-OP RIGHT TKA COMPARISON: No comparisons available. Findings: No acute fracture or malalignment. Arthroplasty intact Soft tissues unremarkable. Impression: Single limits. Arthroplasty appears intact Reviewed, dictated and finalized at location P. ANICAL SERVICE SPECIALIST Impression: Single limits. Arthroplasty appears intact
--- NOTE | ~2025-07-29 | US_ITS ---
EXAMINATION: US venous doppler LE RT DATE: 07/30/2025 13:07 INDICATION: Calf pain TECHNIQUE: Grayscale ultrasound images without and with compression and Doppler ultrasound images of the right lower extremity veins were obtained. COMPARISON: None. FINDINGS: The visualized portions of right common femoral vein, profunda (deep) femoral vein, femoral vein, popliteal vein, peroneal veins, posterior tibial veins, and greater saphenous vein outflow are patent. IMPRESSION: 1. No deep venous thrombosis. Reviewed, dictated and finalized at location A. ING SUPERVISOR
--- OUTSIDE RECORDS SUMMARY | 2025-07-29 03:17 | XMS_ITS | Clinical Summary ---
Author Organization [facility] al Address [address] [place] [address] Care Team Providers Care Lard Tub Washer Name Role Phone Jocelyne Rosario MD Primary Care Provider [phone] Allergies No known active allergies Medications ibuprofen [...] Plan of Treatment Not on file Insurance COVSplash [facility] [employer] PPO COVCloset Couture AETNA [place] PPO Care Teams Lard Tub Washer Relationship Specialty Start Date End Date Joceylne Rosario MD [address] [place] [address] PCP - General 12/26/16
--- NOTE | 2025-07-29 06:47 | WPDANESEPPF ---
Anes - Initial Pre Proc Eval Procedure: Operation Date: 07/29/25 07:30 Proposed Procedures p Right Total Knee Arthroplasty - Augustin Sutton MD Date/Time: 07/29/25 06:47 Surgeon: Augustin Sutton MD Pre Op Diagnosis: OA right knee Patient Data Age: 74 Gender: M Height: 1.8 m Weight: 111.5 kg Last Vital Signs Temp 37.2 C 07/14/25 13:38 Pulse 69 07/14/25 13:38 Resp 16 07/14/25 13:38 BP 157/89 H 07/14/25 13:38 Pulse Ox 98 07/14/25 13:38 O2 Del Method Room Air 07/14/25 13:38 Allergies Allergy/AdvReac Type Severity Reaction Status Date / Time celecoxib (From Celebrex) Allergy Mild Rash Verified 07/14/25 13:33 Home Medications ?Medication ?Instructions ?Recorded ?Confirmed ?Type albuterol sulfate 90 mcg/actuation 1 puff inhalation Q4H PRN 06/16/25 07/14/25 History aerosol inhaler (Ventolin HFA) bronchospasm losartan 100 mg tablet 100 mg PO DAILY 06/16/25 07/14/25 History mecobalamin (vitamin B12) 500 mcg 500 mcg PO .day 06/16/25 07/14/25 History chewable tablet meloxicam 15 mg tablet 15 mg PO DAILY 06/16/25 07/14/25 History metoprolol succinate 50 mg 100 mg PO DAILY 06/16/25 07/14/25 History tablet,extended release 24 hr pantoprazole 40 mg tablet,delayed 40 mg PO QHS 06/16/25 07/14/25 History release amlodipine 5 mg tablet 5 mg PO DAILY #30 tabs 07/04/25 07/14/25 Rx acetaminophen 500 mg tablet 1,000 mg PO ONCE PRN pain 07/14/25 07/14/25 History (Acetaminophen Extra Strength) fluticasone 250 mcg-salmeterol 50 1 inh inhalation Q12H PRN symptoms 07/14/25 07/14/25 History mcg/dose blistr powdr for inhalation Patient hx anesthesia problems: none Family hx anesthesia problems: none Results Review: All pre-operative results and documents have been reviewed as part of the pre-operative evaluation. [facility] Past Medical History Medical History Hypertension COPD (chronic obstructive pulmonary disease) Kidney stone Rheumatoid arthritis History of hepatitis C 2016 - treated Surgical History Surgical History History of total left knee replacement (TKR) Family History Family History Mother Diabetes mellitus Social History Social History Social History: Mr. Roche lives at home with his . He is independent in his ADLs. He is retired. He designates his as his surrogate decision maker and would like to be a full code. Smoking packs per day: 1 Smoking cigarettes per day: 20.0 Years smoked: 32 Smoking pack-years: 32.00 Smoking status: Former smoker Tobacco type: cigarettes Second hand tobacco smoke exposure: Yes Smoking end date: 03/11/94 Additional smoking assessment comments: Denies any nicotine Alcohol intake: current Drinks per week: 4 Alcohol use details: weekends Substance use: current Substance use type: marijuana Other substance usage details: smoke a few times a week Do You Feel Safe in your Home?: Yes Lack of Transportation: No Lack of Food: Never True Current Housing: I Have Housing Concerned About Future Housing: No Difficulty Paying Gas/Electric Bills: No Difficulty Paying for Meds: No Currently Unemployed: No Education: High School Diploma/GED Difficulty w/ Childcare or Family Care: No Living arrangements: with family Additional living arrangements comments: [place] Occupation/Education: retired Spiritual care concerns: No Anes - Eval Final PreProcedure Day of Procedure 07/29/25 06:47 Patient weight: obese Heart: regular rate and rhythm Lungs: clear to auscultation Airway: Mallampati scale class II Neurological: alert and oriented Last oral intake: >/= 8 hours ASA classification: III Emergent: no Anesthetic plan: proceed Anesthesia type and monitoring: general ETT and standard monitoring Results Review: All pre-operative results and documents have been reviewed as part of the pre-operative evaluation. Informed Consent: The patient's anesthetic plan and its attendant risks and benefits were discussed with the patient/family/POA. Questions were solicited and answers provided to the satisfaction of the patient/family/POA.
[2025-07-29] MEDS: ACETAMINOPHEN 500 MG TABLET 1000 MG PO (06:50)
[2025-07-29] MEDS: TRANEXAMIC ACID 1,000MG/ISO100 1,000 MG/100 ML BAG 200 MG IVPB (06:50)
[2025-07-29] MEDS: VANCOMYCIN 1,750 MG/NS 500 ML 1,750 MG/500 ML BAG 250 MG IVPB (06:50)
[2025-07-29] MEDS: LACTATED RINGERS 1,000 ML 30 ML IV CONT ×2 (06:50→11:00)
--- NOTE | 2025-07-29 07:10 | WPDHPUPDATE1 ---
History and Physical Update Update Date/Time: 07/29/25 07:10 History and Physical has been reviewed, including an updated exam of the patient. There are NO changes in the patient's condition. Risks, benefits, and alternatives have been discussed and questions answered. Patient agrees to proceed with procedure.
[2025-07-29] MEDS: ceFAZolin 2 GM in SODIUM CHLORIDE 0.9% IV 50 ML 100 ML IVPB ×3 (07:25→22:20)
[2025-07-29] MEDS: SODIUM CHLORIDE 0.9% IV 37.7 ML, MORPHINE SULFATE INJ (*CRX) 2 MG, ROPivacaine HCL 1% 2... INFILTRATE (08:04)
[2025-07-29] MEDS: GENTAMICIN BONE CEMENT REFOBACIN 1 EACH TOPICAL (09:41)
[2025-07-29] MEDS: TRANEXAMIC ACID 1,000 MG/10 ML AMPUL 1000 MG IV PUSH (09:54)
--- NOTE | 2025-07-29 11:26 | W.PM.PROC2 ---
Procedure Note - Detailed Date of Procedure 07/29/25 Pre-op Diagnosis rheumatoid arthritis right knee Post-op Diagnosis Same Procedure Performed right total knee arthroplasty Surgeon Augustin Sutton MD Learning Disabilities Specialist Joseph Gomez Anesthesia General Description of Procedure patient was brought to the operating room and general anesthesia was administered. He received 2 g of Ancef weight based vancomycin 1 g of TXA preoperatively. The right knee was prepped draped usual fashion. He had a large effusion. He had about a 7 or 10 degree flexion contracture under anesthesia with varus contracture. Limb was exsanguinated tourniquet elevated to 300 mmHg. An 8 in longitudinal midline incision was used and a standard parapatellar arthrotomy utilized. Quadriceps synovectomy carried out and partial excision of infrapatellar fat had carried out. The patella had moderate arthritic change. There was a large effusion was slightly cloudy consistent with active rheumatoid arthritis. I felt resurfacing of the patella was there for best option. The patella measured 25 mm in thickness and was cut to 16.5 mm and protector cap applied. Bone quality was normal. A guide asif was inserted on femoral canal after aspiration of canal contents. There was severe wear on the medial femoral condyle distally such that the guide rested on the cartilage on the lateral femoral condyle and seen to be just below the most distal portion of the lateral femoral condyle therefore I elected to only remove 8 mm. Cuts were made at 5? anatomic axis valgus. Next the tibia was cut. There is severe wear in the medial tibial plateau. We set the cutting guide at 1 degree of varus and a depth such that it removed about 1/2 a mm from the low point of the wear area in medial tibial plateau in this removed 13 mm from the lateral plateau. Removal of the anteromedial tibial osteophytes was performed. The meniscal remnants were excised the PCL recessed from the femur. Flexion gap was assessed and measured 12 mm laterally and a tight 8 mm medially. The femoral sizing guide was applied to the distal femur at 5? external rotation which matched Whitesides line. Posterior referencing pinholes were placed. The size 70 AP vanguard cutting block gave a cut flush with the anterior cortex proximally. Remaining cuts completed in the trial component fit nicely. The tibia was sized to a 79 placed at proper rotation which fit line to line anteromedial to posterolateral this was punched. Trialing with the 11 insert we were still a little bit loose at 90? 2 mm of lateral opening 3 medial. In extension we were tight medially and had about 3 or 4 mm of lateral opening and we lacked about 10? Of extension. At this point we carefully removed posteromedial osteophyte from the tibia releasing posteromedial capsule carefully from the osteophyte itself but the posteromedial capsule still left attached distal to the osteophyte. We trialed again this time with the 12 insert and this gave us appropriate anterior posterior stability 90? with 1 mm lateral opening 2 mm medial opening. We still lacked about 5? of extension with a 0.5 mm of medial opening and 2-3 mm of lateral opening. Since I felt that medially the osteophyte removal was complete around the tibia, we elected to remove 1 more mm bone from the distal femur which is performed in chamfer cuts revisited. We then applied the femoral trial and removed large remaining posteromedial osteophyte. A central posterior capsule release was performed. On read trialing with a 12 we now had full extension with negative bounce with about 1.5 mm of opening medially on valgus stress and 3 mm laterally. [place] flexion was to 135. Excellent anterior-posterior drawer stability in all positions. With the arthrotomy approximated with towel clips, the knee still came out to full extension with about 1 mm of medial opening to valgus stress. Lug holes for the femoral component were drilled. The patella was sized to a 37 and with the 8.6 mm 37 patellar button, we had restored 25 mm thickness. Patellar tracking was perfect throughout range of motion. A conservativelateral facetectomy was performed. The tourniquet had been released at 90 minutes and at this time we re-exsanguinated the limb and tourniquet re elevated to 300 mmHg. Step drill was used to make multiple perforations in the tibial plateau distal femur and the bony surfaces thoroughly irrigated and dried. Using 2 batches of methylmethacrylate 1 with gentamicin powder cement was immediately applied the 79 tibial component and then the size 70 right CR femoral component. Cement applied the tibial plateau pressurized tibial component fully seated cement applied the femur the femoral component fully seated the knee brought into full extension with a 13 mm 5 in 1 poly trial insert. The 37 x 8.6 patella was then cemented and tourniquet released total tourniquet time 106 minutes. Two additional g of Ancef 1 g TXA given. EBL was estimated at 250 cc. After cement hardening excess cement was sought for removed and hemostasis was achieved. We trialed with the 12 insert which gave the same range of motion stability findings as above. This was placed without difficulty locked with a locking clip range of motion stability patellar tracking reconfirmed. Local anesthetic cocktail injected into the periarticular soft tissues. The wound again thoroughly irrigated with Ancef solution closed with 2. Vicryl and 1. Unidirectional barbed Stratafix suture in the arthrotomy. Skin was closed with 2 subcuticular Vicryl 3-0 subcuticular Monocryl and glue. He was transferred to postop recovery room in stable condition. No known complications. [facility] Billing Surgery - Charge Forward: Surgery Billing ( Right total knee arthroplasty)
[2025-07-29] MEDS: fentaNYL CITRATE INJ (*CRX) 100 MCG/2 ML VIAL 25 MCG IV PUSH ×2 (11:28→11:31)
--- NOTE | 2025-07-29 13:00 | ADMGEN ---
This patient, Ramy Roche, was admitted to 3 Med Surg Room 331-01. Patient/family oriented to hospital policies and general routines including ID bracelet, bed and alarms, visiting hours, pain management, procedures, bathroom and other care routines, personal items, smoking policy, room service/diet, and visiting hours. Information on how to activate the Rapid Response Team has been discussed. Patient/Family are encouraged to report perceived risks to care and to ask questions if they do not understand what they are told or what they should do.
[2025-07-29] MEDS: ACETAMINOPHEN 500 MG TABLET PO ×3 (14:01→20:45)
[2025-07-29] MEDS: oxyCODONE HCL (*CRX) 5 MG TAB IR PO ×3 (14:01→20:45)
[2025-07-29] MEDS: SENNA/DOCUSATE SODIUM TABLET 2 TAB PO (17:32)
[2025-07-29] MEDS: VANCOMYCIN HCL 1,000 MG in SODIUM CHLORIDE 0.9% IV 250 ML 250 MG IVPB (17:49)
--- NOTE | 2025-07-29 20:30 | PM.IMCN ---
Assessment and Plan Assessment and plan (1) Osteoarthritis of right knee: Qualifiers: Osteoarthritis type: primary Qualified Code(s): M17.11 - Unilateral primary osteoarthritis, right knee Code(s): M17.11 - Unilateral primary osteoarthritis, right knee Status: Acute Assessment and Plan: Underwent a total right knee arthroplasty on 07/29. - ambulate with assistance and up to chair - use IS - neurovasc checks - see order for intervals - SCDs - analgesics p.r.n. - monitor labs in AM - CBC and BMP - start bowel regimen: docusate/senna, polyethylene glycol - PT/OT (2) Hypertension: Qualifiers: Hypertension type: primary hypertension Qualified Code(s): I10 - Essential (primary) hypertension Code(s): I10 - Essential (primary) hypertension Status: Chronic Assessment and Plan: - chronic, currently 124/65, stable. - continue home medications: Amlodipine 5 mg daily, losartan 100 mg daily, metoprolol 100 mg daily - monitor (3) COPD (chronic obstructive pulmonary disease): Qualifiers: COPD type: unspecified COPD Qualified Code(s): J44.9 - Chronic obstructive pulmonary disease, unspecified Code(s): J44.9 - Chronic obstructive pulmonary disease, unspecified Status: Chronic Assessment and Plan: No evidence of exacerbation on exam. Reports the incentive spirometer has actually helped him clear his chronic sputum. - continue albuterol p.r.n. and fluticasone-salmeterol b.i.d. p.r.n. Plan Diet: Regular GI Prophylaxis: N/a DVT Prophylaxis: KieraquOSITO aparicios IV fluids: NS 125 mL/hour x8 hours Lines/Tubes: Peripheral IV Code Status: Full code HPI Date of Consult Consult date: 07/29/25 Requesting Physician: Augustin Sutton MD Primary Care Provider: Jocelyne Rosario MD Consult Narrative Reason for consult: Medical Management Narrative: 74 y/o M with PMH of hypertension, COPD, kidney stones, rheumatoid arthritis, and hepatitis C treated in 2016 presents here for a right total knee arthroplasty. The patient presents here for surgical management of his right knee advanced medial compartment osteoarthritis. He has had pain in his right knee for some time and and symptoms have been occurring on a daily basis. Pain now limiting his daily activities. He has previously underwent steroid injections and on meloxicam daily. Last cortisone injection in November of 2024 which only provided him some relief for approximately 1 week before wearing off. He reports the meloxicam has only given him minimal improvement. He has previously underwent a total left knee arthroplasty in 2020 with an uneventful recovery and he has been pleased with results. Given this accumulation of factors he has elected to move forward with surgical management. Postop he is reporting significant improvement in his right knee pain at rest. He did experience some discomfort with ambulation. Denies nausea or vomiting. Preop VS: 99? F, HR 69, R 16, 157/89, and 98% on RA. Preop workup: No leukocytosis, no anemia, no significant electrolyte derangements, creatinine 1.1 and GFR >60, A1c 5.2%. Review of Systems Review of Systems: All systems reviewed & are unremarkable except as noted in HPI and below [facility] Past Medical History Medical History (Updated 07/29/25 @ 21:09 by Hilda Hughes APRN) Hypertension COPD (chronic obstructive pulmonary disease) Kidney stone Rheumatoid arthritis History of hepatitis C 2016 - treated Surgical History Surgical History History of total left knee replacement (TKR) Family History Family History Mother Diabetes mellitus Social History Social History Social History: Mr. Roche lives at home with his . He is independent in his ADLs. He is retired. He designates his as his surrogate decision maker and would like to be a full code. Smoking packs per day: 1 Smoking cigarettes per day: 20.0 Years smoked: 32 Smoking pack-years: 32.00 Smoking status: Former smoker Second hand tobacco smoke exposure: Yes Additional smoking assessment comments: Denies any nicotine Alcohol intake: current Drinks per week: 4 Alcohol use details: weekends Substance use: current Substance use type: marijuana Other substance usage details: smoke a few times a week Do You Feel Safe in your Home?: Yes Lack of Transportation: No Lack of Food: Never True Current Housing: I Have Housing Concerned About Future Housing: No Difficulty Paying Gas/Electric Bills: No Difficulty Paying for Meds: No Currently Unemployed: No Education: High School Diploma/GED Difficulty w/ Childcare or Family Care: No Living arrangements: with family Additional living arrangements comments: [place] Occupation/Education: retired Spiritual care concerns: No Meds Home Medications and Allergies Home Medications ?Medication ?Instructions ?Recorded ?Confirmed ?Type albuterol sulfate 90 mcg/actuation 1 puff inhalation Q4H PRN 06/16/25 07/14/25 History aerosol inhaler (Ventolin HFA) bronchospasm losartan 100 mg tablet 100 mg PO DAILY 06/16/25 07/29/25 History mecobalamin (vitamin B12) 500 mcg 500 mcg PO .day 06/16/25 07/29/25 History chewable tablet meloxicam 15 mg tablet 15 mg PO DAILY 06/16/25 07/29/25 History metoprolol succinate 50 mg 100 mg PO DAILY 06/16/25 07/29/25 History tablet,extended release 24 hr pantoprazole 40 mg tablet,delayed 40 mg PO QHS 06/16/25 07/29/25 History release amlodipine 5 mg tablet 5 mg PO DAILY #30 tabs 07/04/25 07/29/25 Rx acetaminophen 500 mg tablet 1,000 mg PO ONCE PRN pain 07/14/25 07/14/25 History (Acetaminophen Extra Strength) fluticasone 250 mcg-salmeterol 50 1 inh inhalation Q12H PRN symptoms 07/14/25 07/14/25 History mcg/dose blistr powdr for inhalation Allergies Allergy/AdvReac Type Severity Reaction Status Date / Time celecoxib (From Celebrex) Allergy Mild Rash Verified 07/29/25 14:26 Vital Signs Vital Signs - 24 hr 07/29/25 06:50 07/29/25 11:00 07/29/25 11:15 Temperature 98.1 F 99.5 F Pulse Rate 96 95 106 H Respiratory Rate 16 12 24 H Blood Pressure 148/92 H 131/73 155/88 H Pulse Oximetry 96 99 97 Oxygen Delivery Room Air Simple Face Mask Simple Face Mask Oxygen Flow Rate 10 10 07/29/25 11:30 07/29/25 11:45 07/29/25 12:00 Temperature Pulse Rate 100 108 H 104 H Respiratory Rate 12 18 14 Blood Pressure 142/78 H 146/81 H 145/85 H Pulse Oximetry 100 93 94 Oxygen Delivery Simple Face Mask Room Air Nasal Cannula Oxygen Flow Rate 10 2 07/29/25 12:15 07/29/25 12:30 07/29/25 12:43 Temperature Pulse Rate 106 H 106 H Respiratory Rate 20 10 L 13 Blood Pressure 157/82 H 143/83 H 140/80 Pulse Oximetry 96 96 98 Oxygen Delivery Nasal Cannula Nasal Cannula Room Air Oxygen Flow Rate 2 2 07/29/25 12:55 07/29/25 13:10 07/29/25 13:25 Temperature 97.8 F 97.2 F L Pulse Rate 110 H 112 H 114 H Respiratory Rate 18 16 18 Blood Pressure 158/85 H 146/79 H Pulse Oximetry 96 94 95 Oxygen Delivery Nasal Cannula Oxygen Flow Rate 2 07/29/25 14:05 07/29/25 14:59 07/29/25 15:02 Temperature 97.6 F 97.8 F Pulse Rate 109 H 112 H Respiratory Rate 18 16 Blood Pressure 138/79 159/85 H Pulse Oximetry 96 94 Oxygen Delivery Room Air Oxygen Flow Rate 07/29/25 15:30 07/29/25 20:26 Temperature 99.3 F Pulse Rate 111 H Respiratory Rate 18 Blood Pressure 124/65 Pulse Oximetry 95 Oxygen Delivery Room Air Oxygen Flow Rate Exam Const: General: comfortable and no acute distress Other: , male, nontoxic appearance HENMT: Face/Nose/Sinus: Normal nares present Mouth: Yes moist mucous membranes Eyes: General: appearance normal, both eyes and all related structures Sclera: sclerae normal Pupils: Equal, round and reactive pupils present EOM: EOMs intact bilaterally Resp: Effort & Inspection: normal respiratory effort Auscultation: clear to auscultation bilaterally Cardio: Rate: regular rate Rhythm: regular rhythm Other: S1-S2 present without murmur, rub, ectopy GI: Other: Abdomen soft, nondistended, nontender. Normoactive bowel sounds in all quadrants. Skin: General skin exam: normal color and no rashes or lesions noted Other: R knee with postop incision. Dressing CDI. Minimal edema. No ecchymosis or hematoma. Neuro: Speech: normal speech Motor exam (neuro): 5/5 motor strength present throughout Sensory Exam: normal sensation Other: A/Ox4 Extrem: General: normal exam except as noted Psych: Mental Status: mental status grossly normal Affect: normal affect Other: S1-S2 present without murmur, rub, ectopy Quality VTE Prophylaxis VTE prophylaxis: mechanical ordered Hospitalist MIPS Advance Care Plan I have confirmed that the patient's Advanced Care Plan is present, code status is documented, or surrogate decision maker is listed in patient medical record.: Yes Medication Reconciliation I have utilized all available resources to obtain, update and review the patients current medications (includes all prescriptions, OTC, herbals, cannabis, and nutritional supplements).: Yes
[2025-07-29] MEDS: PANTOPRAZOLE 40 MG TABLET PO (20:45)
[2025-07-30 00:10] VITALS: BP 120/71; PULSE 107; RESP 18; TEMP 36.6; O2SAT 96
[2025-07-30] MEDS: oxyCODONE HCL (*CRX) 5 MG TAB IR PO ×6 (00:24→13:59)
[2025-07-30] MEDS: ACETAMINOPHEN 500 MG TABLET PO ×4 (00:24→12:39)
[2025-07-30] MEDS: VANCOMYCIN HCL 1,000 MG in SODIUM CHLORIDE 0.9% IV 250 ML 250 MG IVPB (05:02)
[2025-07-30 06:11] VITALS: BP 135/74; PULSE 104; RESP 18; TEMP 37.1; O2SAT 96
[2025-07-30] MEDS: ceFAZolin 2 GM in SODIUM CHLORIDE 0.9% IV 50 ML 100 ML IVPB (06:24)
[2025-07-30 07:44] VITALS: BP 164/78; PULSE 108; RESP 16; TEMP 37; O2SAT 94
--- NOTE | 2025-07-30 08:16 | P.PNOP_ITS ---
Progress Note: A&P Assessment and Plan (1) Status post total right knee replacement: Code(s): Z96.651 - Presence of right artificial knee joint Status: Acute Assessment and Plan: Patient is postop day 1 following right total knee replacement. He has been up and about. He has other below bit more pain in the front of his knee today but it is tolerable. Neurologically intact in right leg. His incision is dry with no drainage on the Mepilex dressing but he does have evidence of prepatellar bursal fluid collection. It is expected this will be resorbed over time. Importance of elevation and working on flexion extension with stress to him. He starts therapy on Monday. He feels comfortable going home today I will see him back in 2 weeks to assess his progress. His labs this morning are still pending. The Subjective Subjective Date/Time Seen: 07/30/25 08:16 Objective Data Vital Signs Vital Signs: Vital Signs - 24 hr 07/29/25 11:00 07/29/25 11:15 07/29/25 11:30 Temperature 37.5 C Pulse Rate 95 106 H 100 Respiratory Rate 12 24 H 12 Blood Pressure 131/73 155/88 H 142/78 H Pulse Oximetry 99 97 100 Oxygen Delivery Simple Face Mask Simple Face Mask Simple Face Mask Oxygen Flow Rate 10 10 10 07/29/25 11:45 07/29/25 12:00 07/29/25 12:15 Temperature Pulse Rate 108 H 104 H 106 H Respiratory Rate 18 14 20 Blood Pressure 146/81 H 145/85 H 157/82 H Pulse Oximetry 93 94 96 Oxygen Delivery Room Air Nasal Cannula Nasal Cannula Oxygen Flow Rate 2 2 07/29/25 12:30 07/29/25 12:43 07/29/25 12:55 Temperature 36.6 C Pulse Rate 106 H 110 H Respiratory Rate 10 L 13 18 Blood Pressure 143/83 H 140/80 158/85 H Pulse Oximetry 96 98 96 Oxygen Delivery Nasal Cannula Room Air Oxygen Flow Rate 2 07/29/25 13:10 07/29/25 13:25 07/29/25 14:05 Temperature 36.2 C L 36.4 C Pulse Rate 112 H 114 H 109 H Respiratory Rate 16 18 18 Blood Pressure 146/79 H 138/79 Pulse Oximetry 94 95 96 Oxygen Delivery Nasal Cannula Oxygen Flow Rate 2 07/29/25 14:59 07/29/25 15:02 07/29/25 15:30 Temperature 36.6 C Pulse Rate 112 H Respiratory Rate 16 Blood Pressure 159/85 H Pulse Oximetry 94 Oxygen Delivery Room Air Room Air Oxygen Flow Rate 07/29/25 19:41 07/29/25 20:26 07/30/25 00:10 Temperature 37.4 C 36.6 C Pulse Rate 111 H 107 H Respiratory Rate 18 18 Blood Pressure 124/65 120/71 Pulse Oximetry 95 95 96 Oxygen Delivery Room Air Oxygen Flow Rate 07/30/25 06:11 07/30/25 07:44 Temperature 37.1 C 37.0 C Pulse Rate 104 H 108 H Respiratory Rate 18 16 Blood Pressure 135/74 164/78 H Pulse Oximetry 96 94 Oxygen Delivery Oxygen Flow Rate Intake/Output Intake/Output: Intake & Output 07/27/25 07/28/25 07/29/25 07/30/25 23:59 23:59 23:59 23:59 Intake Total 980 550 Output Total 800 400 Balance 180 150 Meds/Results Medications: Active Medications Generic Name Dose Route Start Last Admin Trade Name Freq PRN Reason Stop Dose Admin Acetaminophen 500 mg 07/29/25 13:00 07/30/25 05:03 Acetaminophen 500 Mg Tablet PO 500 mg Q4H [facility] Administration Albuterol 1 puff 07/29/25 12:55 Albuterol Sulfate (*Sp) Aerosol 1 Puff INHALATION Q4HRT PRN Bronchospasm Amlodipine Besylate 5 mg 07/30/25 09:00 Amlodipine Besylate 5 Mg Tablet PO DAILY [facility] Apixaban 2.5 mg 07/30/25 09:00 Apixaban 2.5 Mg Tablet PO Q12HR [facility] Cyanocobalamin 500 mcg 07/30/25 09:00 Cyanocobalamin 500 Mcg Tablet PO QAM [facility] Doxycycline Hyclate 100 mg 07/30/25 09:00 Doxycycline Hyclate 100 Mg Tablet PO 08/11/25 08:59 Q12HR [facility] Losartan Potassium 100 mg 07/30/25 09:00 Losartan Potassium 100 Mg Tablet PO DAILY [facility] Meloxicam 7.5 mg 07/30/25 08:00 Meloxicam 7.5 Mg Tablet PO DAILY@0800 [facility] Metoprolol Succinate 100 mg 07/30/25 09:00 Metoprolol Succinate Ext Rel 50 Mg Tabcr PO DAILY [facility] Miscellaneous Information 1 each 07/29/25 00:01 Nonformulary Drug (Fluticasone Propion-Salmeterol 250-50 Mcg/Dose Blister With Device) Thi XX 08/28/25 00:00 CLARIFY YARY Morphine Sulfate 2 mg 07/29/25 12:55 Morphine Sulfate (*Crx) 4 Mg/Ml Inj IV PUSH Q2H PRN Pain Rated 7-10 Naloxone HCl 0.1 mg 07/29/25 12:55 Naloxone Hcl 0.4 Mg/Ml Vial IV PUSH Q2M PRN Opiate Reversal Non-Formulary Medication 1 inhalation 07/29/25 12:55 Fluticasone Propion-Salmeterol INHALATION Q12H PRN symptoms Ondansetron HCl 4 mg 07/28/25 16:07 Ondansetron Inj 4 Mg/2 Ml Vial IV PUSH ONCE PRN Nausea Ondansetron HCl 4 mg 07/29/25 12:55 Ondansetron Inj 4 Mg/2 Ml Vial IV PUSH Q4H PRN Nausea And Vomiting Oxycodone HCl 5 mg 07/28/25 16:07 Oxycodone Hcl (*Crx) 5 Mg Tab Ir PO ONCE PRN Pain Oxycodone HCl 5 mg 07/29/25 12:55 07/30/25 05:03 Oxycodone Hcl (*Crx) 5 Mg Tab Ir PO 5 mg Q4H [facility] Administration Oxycodone HCl 5 mg 07/29/25 12:55 Oxycodone Hcl (*Crx) 5 Mg Tab Ir PO Q4H PRN Pain Rated 7-10 Pantoprazole Sodium 40 mg 07/29/25 21:00 07/29/25 20:45 Pantoprazole 40 Mg Tablet PO 40 mg QHS [facility] Administration Polyethylene Glycol 17 gm 07/30/25 09:00 Polyethylene Glycol 3350 17 Gm Powd.Pack PO QAM [facility] Senna/Docusate Sodium 2 tab 07/29/25 17:00 07/29/25 17:32 Senna/Docusate Sodium Tablet PO 2 tab BID [facility] Administration Radiology Results: ITS Impressions Knee X-Ray 07/29/25 11:29 Impression: Single limits. Arthroplasty appears intact
[2025-07-30 08:20] LABS: Hematocrit 39.0 % (42.0-52.0); Hemoglobin 12.8 g/dL (14.0-18.0); Immature Granulocyte Percent A 0.3 % (0-0.5); Lymphocytes Absolute Auto 0.92 K/mm3 (0.9-3.2); Mean Corpuscular HGB Conc 32.8 g/dl (32-36); Mean Corpuscular Hemoglobin 30.3 pg (26-34); Mean Corpuscular Volume 92.4 fl (80-100); Nucleated Red Blood Cells Absolute Auto 0.000 K/mm3 (0.0-0.012); Nucleated Red Blood Cells Perc 0.0 % (0.0-0.2); Platelet Count Result 194 k/mm3 (150-375); Red Blood Count 4.22 M/mm3 (4.6-6.20); White Blood Count 14.3 K/mm3 (4.5-10.0)
--- NOTE | 2025-07-30 08:28 | PM.IMPN ---
Progress Note: A&P Assessment and Plan (1) Osteoarthritis of right knee: Qualifiers: Osteoarthritis type: primary Qualified Code(s): M17.11 - Unilateral primary osteoarthritis, right knee Code(s): M17.11 - Unilateral primary osteoarthritis, right knee Status: Acute Assessment and Plan: Underwent a total right knee arthroplasty on 07/29. - ambulate with assistance and up to chair - use IS - neurovasc checks - see order for intervals - SCDs - analgesics p.r.n. - monitor labs in AM - CBC and BMP - start bowel regimen: docusate/senna, polyethylene glycol - PT/OT (2) Hypertension: Qualifiers: Hypertension type: primary hypertension Qualified Code(s): I10 - Essential (primary) hypertension Code(s): I10 - Essential (primary) hypertension Status: Chronic Assessment and Plan: - chronic, currently 124/65, stable. - continue home medications: Amlodipine 5 mg daily, losartan 100 mg daily, metoprolol 100 mg daily - monitor ------- reviewed, this am was elevated but overall ok (3) COPD (chronic obstructive pulmonary disease): Qualifiers: COPD type: unspecified COPD Qualified Code(s): J44.9 - Chronic obstructive pulmonary disease, unspecified Code(s): J44.9 - Chronic obstructive pulmonary disease, unspecified Status: Chronic Assessment and Plan: No evidence of exacerbation on exam. Reports the incentive spirometer has actually helped him clear his chronic sputum. - continue albuterol p.r.n. and fluticasone-salmeterol b.i.d. p.r.n. Plan Instructed to do IS Diet: Regular GI Prophylaxis: N/a DVT Prophylaxis: Petey Stevenson IV fluids: NS 125 mL/hour x8 hours Lines/Tubes: Peripheral IV Code Status: Full code Time Spent With Patient Time with patient: 25 - 35 minutes Subjective Date/time seen: 07/30/25 08:28 Interval history: 74 y/o M with PMH of hypertension, COPD, kidney stones, rheumatoid arthritis, and hepatitis C treated in 2016 presents here for a right total knee arthroplasty. The patient presents here for surgical management of his right knee advanced medial compartment osteoarthritis. He has had pain in his right knee for some time and and symptoms have been occurring on a daily basis. Pain now limiting his daily activities. He has previously underwent steroid injections and on meloxicam daily. Last cortisone injection in November of 2024 which only provided him some relief for approximately 1 week before wearing off. He reports the meloxicam has only given him minimal improvement. He has previously underwent a total left knee arthroplasty in 2020 with an uneventful recovery and he has been pleased with results. Given this accumulation of factors he has elected to move forward with surgical management. Postop he is reporting significant improvement in his right knee pain at rest. He did experience some discomfort with ambulation. Denies nausea or vomiting. Preop VS: 99? F, HR 69, R 16, 157/89, and 98% on RA. Preop workup: No leukocytosis, no anemia, no significant electrolyte derangements, DR Sutton saw pt this am and ok with discharge with a f/u in 2 weeks. He is doing well. reports pain but overall controlled. NO BM yet but started bowel regimen. Voided without difficulties. Using IS Review of Systems Review of Systems: All systems reviewed & are unremarkable except as noted in HPI and below Exam Const: General: comfortable and no acute distress Other: , male, nontoxic appearance HENMT: Face/Nose/Sinus: Normal nares present Mouth: Yes moist mucous membranes Eyes: General: appearance normal, both eyes and all related structures Sclera: sclerae normal Pupils: Equal, round and reactive pupils present EOM: EOMs intact bilaterally Resp: Effort & Inspection: normal respiratory effort Auscultation: clear to auscultation bilaterally Cardio: Rate: regular rate Rhythm: regular rhythm Other: S1-S2 present without murmur, rub, ectopy GI: Other: Abdomen soft, nondistended, nontender. Normoactive bowel sounds in all quadrants. Skin: General skin exam: normal color and no rashes or lesions noted Other: R knee with postop incision. Dressing CDI. Minimal edema. No ecchymosis or hematoma. Neuro: Cranial nerves: Yes Equal, round and reactive pupils present Speech: normal speech Motor exam (neuro): 5/5 motor strength present throughout Sensory Exam: normal sensation Other: A/Ox4 Extrem: General: normal exam except as noted Psych: Mental Status: mental status grossly normal Affect: normal affect Other: S1-S2 present without murmur, rub, ectopy Objective Data Vital Signs Vital Signs: Vital Signs - 24 hr 07/29/25 11:00 07/29/25 11:15 07/29/25 11:30 Temperature 99.5 F Pulse Rate 95 106 H 100 Respiratory Rate 12 24 H 12 Blood Pressure 131/73 155/88 H 142/78 H Pulse Oximetry 99 97 100 Oxygen Delivery Simple Face Mask Simple Face Mask Simple Face Mask Oxygen Flow Rate 10 10 10 07/29/25 11:45 07/29/25 12:00 07/29/25 12:15 Temperature Pulse Rate 108 H 104 H 106 H Respiratory Rate 18 14 20 Blood Pressure 146/81 H 145/85 H 157/82 H Pulse Oximetry 93 94 96 Oxygen Delivery Room Air Nasal Cannula Nasal Cannula Oxygen Flow Rate 2 2 07/29/25 12:30 07/29/25 12:43 07/29/25 12:55 Temperature 97.8 F Pulse Rate 106 H 110 H Respiratory Rate 10 L 13 18 Blood Pressure 143/83 H 140/80 158/85 H Pulse Oximetry 96 98 96 Oxygen Delivery Nasal Cannula Room Air Oxygen Flow Rate 2 07/29/25 13:10 07/29/25 13:25 07/29/25 14:05 Temperature 97.2 F L 97.6 F Pulse Rate 112 H 114 H 109 H Respiratory Rate 16 18 18 Blood Pressure 146/79 H 138/79 Pulse Oximetry 94 95 96 Oxygen Delivery Nasal Cannula Oxygen Flow Rate 2 07/29/25 14:59 07/29/25 15:02 07/29/25 15:30 Temperature 97.8 F Pulse Rate 112 H Respiratory Rate 16 Blood Pressure 159/85 H Pulse Oximetry 94 Oxygen Delivery Room Air Room Air Oxygen Flow Rate 07/29/25 19:41 07/29/25 20:26 07/30/25 00:10 Temperature 99.3 F 98 F Pulse Rate 111 H 107 H Respiratory Rate 18 18 Blood Pressure 124/65 120/71 Pulse Oximetry 95 95 96 Oxygen Delivery Room Air Oxygen Flow Rate 07/30/25 06:11 07/30/25 07:44 Temperature 98.7 F 98.6 F Pulse Rate 104 H 108 H Respiratory Rate 18 16 Blood Pressure 135/74 164/78 H Pulse Oximetry 96 94 Oxygen Delivery Oxygen Flow Rate Intake/Output Intake/Output: Intake & Output 07/27/25 07/28/25 07/29/25 07/30/25 23:59 23:59 23:59 23:59 Intake Total 980 790 Output Total 800 400 Balance 180 390 Meds/Results Medications: Active Medications Generic Name Dose Route Start Last Admin Trade Name Freq PRN Reason Stop Dose Admin Acetaminophen 500 mg 07/29/25 13:00 07/30/25 05:03 Acetaminophen 500 Mg Tablet PO 500 mg Q4H [facility] Administration Albuterol 1 puff 07/29/25 12:55 Albuterol Sulfate (*Sp) Aerosol 1 Puff INHALATION Q4HRT PRN Bronchospasm Amlodipine Besylate 5 mg 07/30/25 09:00 Amlodipine Besylate 5 Mg Tablet PO DAILY [facility] Apixaban 2.5 mg 07/30/25 09:00 Apixaban 2.5 Mg Tablet PO Q12HR [facility] Cyanocobalamin 500 mcg 07/30/25 09:00 Cyanocobalamin 500 Mcg Tablet PO QAM [facility] Doxycycline Hyclate 100 mg 07/30/25 09:00 Doxycycline Hyclate 100 Mg Tablet PO 08/11/25 08:59 Q12HR [facility] Losartan Potassium 100 mg 07/30/25 09:00 Losartan Potassium 100 Mg Tablet PO DAILY [facility] Meloxicam 7.5 mg 07/30/25 08:00 Meloxicam 7.5 Mg Tablet PO DAILY@0800 [facility] Metoprolol Succinate 100 mg 07/30/25 09:00 Metoprolol Succinate Ext Rel 50 Mg Tabcr PO DAILY [facility] Miscellaneous Information 1 each 07/29/25 00:01 Nonformulary Drug (Fluticasone Propion-Salmeterol 250-50 Mcg/Dose Blister With Device) Thi XX 08/28/25 00:00 CLARIFY [facility] Morphine Sulfate 2 mg 07/29/25 12:55 Morphine Sulfate (*Crx) 4 Mg/Ml Inj IV PUSH Q2H PRN Pain Rated 7-10 Naloxone HCl 0.1 mg 07/29/25 12:55 Naloxone Hcl 0.4 Mg/Ml Vial IV PUSH Q2M PRN Opiate Reversal Non-Formulary Medication 1 inhalation 07/29/25 12:55 Fluticasone Propion-Salmeterol INHALATION Q12H PRN symptoms Ondansetron HCl 4 mg 07/28/25 16:07 Ondansetron Inj 4 Mg/2 Ml Vial IV PUSH ONCE PRN Nausea Ondansetron HCl 4 mg 07/29/25 12:55 Ondansetron Inj 4 Mg/2 Ml Vial IV PUSH Q4H PRN Nausea And Vomiting Oxycodone HCl 5 mg 07/28/25 16:07 Oxycodone Hcl (*Crx) 5 Mg Tab Ir PO ONCE PRN Pain Oxycodone HCl 5 mg 07/29/25 12:55 07/30/25 05:03 Oxycodone Hcl (*Crx) 5 Mg Tab Ir PO 5 mg Q4H [facility] Administration Oxycodone HCl 5 mg 07/29/25 12:55 Oxycodone Hcl (*Crx) 5 Mg Tab Ir PO Q4H PRN Pain Rated 7-10 Pantoprazole Sodium 40 mg 07/29/25 21:00 07/29/25 20:45 Pantoprazole 40 Mg Tablet PO 40 mg QHS [facility] Administration Polyethylene Glycol 17 gm 07/30/25 09:00 Polyethylene Glycol 3350 17 Gm Powd.Pack PO QAM [facility]ARY Senna/Docusate Sodium 2 tab 07/29/25 17:00 07/29/25 17:32 Senna/Docusate Sodium Tablet PO 2 tab BID [facility] Administration Radiology Results: ITS Impressions Knee X-Ray 07/29/25 11:29 Impression: Single limits. Arthroplasty appears intact Labs Labs: Laboratory Results - last 24 hr 07/30/25 07:25 WBC 14.3 H RBC 4.22 L Hgb 12.8 L Hct 39.0 L MCV 92.4 MCH 30.3 MCHC 32.8 RDW 13.2 Plt Count 194 MPV 10.2 Immature Gran % (Auto) 0.3 Neut % (Auto) 80.8 H Lymph % (Auto) 6.4 L [place] % (Auto) 12.1 H Eos % (Auto) 0.1 Baso % (Auto) 0.3 Lymph # (Auto) 0.92 [place] # (Auto) 1.7 H Eos # (Auto) 0.0 Baso # (Auto) 0.0 Abs Immat Gran (auto) 0.04 H Absolute Neuts (auto) 11.5 H Absolute Nucleated RBC 0.000 Nucleated RBC % 0.0 Quality VTE Prophylaxis VTE prophylaxis: mechanical ordered
[2025-07-30 08:41] LABS: Anion Gap 9 mmol/L (4-12); Blood Urea Nitrogen 27 mg/dL (9-20); Calcium 8.3 mg/dL (8.4-10.2); Carbon Dioxide 23 mmol/L (22-30); Chloride 105 mmol/L (98-107); Estimated CRCL calculation 63 ml/min; Estimated Glomerular Filt Rate > 60; Glucose 103 mg/dL (65-110); Potassium 3.9 mmol/L (3.4-5.0); Sodium 137 mmol/L (137-145)
[2025-07-30] MEDS: LOSARTAN POTASSIUM 100 MG TABLET PO (08:46)
[2025-07-30] MEDS: MELOXICAM 7.5 MG TABLET PO (08:47)
[2025-07-30] MEDS: SENNA/DOCUSATE SODIUM TABLET 2 TAB PO (08:47)
[2025-07-30] MEDS: APIXABAN 2.5 MG TABLET PO (08:47)
[2025-07-30] MEDS: CYANOCOBALAMIN 500 MCG TABLET PO (08:47)
[2025-07-30 08:48] VITALS: PULSE 104
[2025-07-30] MEDS: METOPROLOL SUCCINATE EXT REL 50 MG TABCR 100 MG PO (08:48)
[2025-07-30] MEDS: DOXYCYCLINE HYCLATE 100 MG TABLET PO (08:48)
[2025-07-30 08:50] VITALS: PULSE 104; RESP 16; O2SAT 94
[2025-07-30] MEDS: MORPHINE SULFATE (*CRX) 4 MG/ML INJ 2 MG IV PUSH (10:33)
[2025-07-30 11:51] VITALS: BP 134/74; PULSE 107; RESP 16; TEMP 37.7; O2SAT 95
--- NOTE | 2025-07-30 14:50 | PCPTNOTE ---
Attempted to see patient for PT, however patient refused due to pain, patient just got pain medication.
[2025-07-30] MEDS: CYCLOBENZAPRINE HCL 10 MG TABLET PO (15:37)
== END 2025-07-30 15:40 | disposition home or self-care (01) ==
LOC: ANHSURGERY 05:49 → ANH3MEDSUR 12:59
PROVIDERS: PCP Internal Medicine; Visit Provider Orthopaedic Surgery
PROC: (CPT 27447; principal; 2025-07-29 07:30)
DX: M17.11 Unilateral primary osteoarthritis, right knee (principal); M25.761 Osteophyte, right knee; M79.661 Pain in right lower leg; I10 Essential (primary) hypertension; J44.9 Chronic obstructive pulmonary disease, unspecified; M06.9 Rheumatoid arthritis, unspecified; F12.90 Cannabis use, unspecified, uncomplicated; E66.9 Obesity, unspecified; Z68.33 Body mass index [BMI] 33.0-33.9, adult; Z79.51 Long term (current) use of inhaled steroids; Z96.652 Presence of left artificial knee joint; Z87.442 Personal history of urinary calculi; Z87.891 Personal history of nicotine dependence
CPT/HCPCS: 27447; 36415; 73560; 80048; 85025; 86850; 86900; 86901; 93971; 97110; 97161; 97166; 97530; J0690; A9270; C1713; C1776; J0166; J1100; J1171; J1885; J2003; J2270; J2405; J2704; J2795; J3010; J3290; J3373; J7050; J7120

== ENCOUNTER 2025-09-08 15:19 | Outpatient (CLI) | payer MEDICARE, SELFPAY ==
--- NOTE | ~2025-09-08 | US_ITS ---
EXAMINATION: US venous doppler LE DATE: 09/08/2025 16:03 INDICATION: Localized swelling TECHNIQUE: Grayscale ultrasound images without and with compression and Doppler ultrasound images of the right lower extremity veins were obtained. COMPARISON: 07/30/2025 FINDINGS: The visualized portions of right common femoral vein, profunda (deep) femoral vein, femoral vein, popliteal vein, peroneal trunk, posterior tibial veins, peroneal veins, gastrocnemius vein and greater saphenous vein outflow are patent. IMPRESSION: 1. No deep venous thrombosis in the right lower limb. Reviewed, dictated and finalized at location A. [employer]
--- OUTSIDE RECORDS SUMMARY | 2025-09-08 15:23 | XMS_ITS | Clinical Summary ---
Author Organization [facility] Address [facility] [place] [address] Care Team Providers Care Turbine Measurements Engineer Name Role Phone Jocelyne Rosario MD Primary Care Provider [phone] Social History Tobacco Use Types Packs/Day Years [...] this topic Insurance [employer] MEDICARE Care Teams Turbine Measurements Engineer Relationship Specialty Start Date End Date Jocelyne Rosario MD [address] [place] [address] PCP - General INTERNAL MEDICINE 11/15/21
--- OUTSIDE RECORDS SUMMARY | 2025-09-08 15:24 | XMS_ITS | Clinical Summary ---
Author Organization [facility] al Address [address] [place] [address] Care Team Providers Care Wire Bound Box Machine Operator Name Role Phone Jocelyne Rosario MD Primary Care Provider [phone] Allergies No known active allergies Medications ibuprofen [...] Plan of Treatment Not on file Insurance [employer] [facility] [employer] PPO [employer] [place] PPO Care Teams Wire Bound Box Machine Operator Relationship Specialty Start Date End Date Jocelyne Rosario MD [address] [place] [address] PCP - General 12/26/16
== END 2025-09-08 15:20 | disposition home or self-care (01) ==
PROVIDERS: PCP Internal Medicine; Visit Provider Orthopaedic Surgery
DX: R60.0 Localized edema (principal)
CPT/HCPCS: 93971